=== PATIENT | female | born 1955 | race Caucasian/White ===

== ENCOUNTER 2017-02-23 13:38 | Inpatient (IN) | payer BC, OTHER ==
[2017-02-23] MEDS ORDERED: SODIUM CHLORIDE 1,000 ML IV STA (14:09)
[2017-02-23] MEDS ORDERED: ONDANSETRON 4 MG/2 ML VIAL IVPUSH ONE (14:09)
[2017-02-23] MEDS ORDERED: morphine CARPU-JECT 4 MG/1 ML DISP.SYRIN IVPUSH ONE ×2 (14:09→15:33)
[2017-02-23] MEDS ORDERED: FAMOTIDINE 20 MG/50 ML IVPB 50 ML IVPB ONE ×2 (14:10→14:20)
--- NOTE | 2017-02-23 14:17 | PDOC ---
History of Present Illness - History of Present Illness Initial Comments: 02/23/17 14:23 The patient is a 61 year old female, with a significant past medical history of diabetes and hypertension, who presents to the emergency department with constant epigastric pain radiating to back since 11AM today. The patient reports her pain as a burning, pressure-like pain, 9/10 in severity, localized to her epigastric region, radiating slightly upward to her sternum, and to her back. She denies any alleviating or exacerbating factors for pain. She states she has been burping frequently, but denies passing gas from below today. She reports her last BM was normal this morning. She denies chest pain, shortness of breath, headache and dizziness. She denies fever, chills, nausea, vomit, diarrhea and constipation. She denies dysuria, frequency, urgency and hematuria. Allergies: NKDA Past surgical history: gastric bypass <Corinne Vera - Last Filed: 02/23/17 16:19> - General History Source: Patient, Old Records Exam Limitations: No Limitations <Dulce Maria Choudhury - Last Filed: 02/23/17 16:23> - General Chief Complaint: Chest Pain Stated Complaint: PAIN/ CHEST, BACK, ABD Time Seen by Provider: 02/23/17 13:52 Past History <Corinne Vera - Last Filed: 02/23/17 16:19> - Past Medical History Diabetes: Yes HTN: Yes - Immunization History Immunization Up to Date: Yes - Psycho/Social/Smoking Cessation Hx Anxiety: No Suicidal Ideation: No Smoking Status: No Smoking History: Never smoked Hx Alcohol Use: No Drug/Substance Use Hx: No Substance Use Type: None Hx Substance Use Treatment: No <Dulce Maria Choudhury - Last Filed: 02/23/17 16:23> - Past Medical History Allergies/Adverse Reactions: Allergies Allergy/AdvReac Type Severity Reaction Status Date / Time No Known Allergies Allergy Verified 07/07/13 02:21 Home Medications: Ambulatory Orders Lisinopril [Prinivil -] 40 mg PO DAILY #0 tablet 07/08/13 Metformin HCl [Glucophage -] 500 mg PO DAILY #0 tablet 07/08/13 Review of Systems - Review of Systems Able to Perform ROS?: Yes Comments:: 02/23/17 14:23 GENERAL/CONSTITUTIONAL: No fever or chills. No weakness. HEAD, EYES, EARS, NOSE AND THROAT: No change in vision. No ear pain or discharge. No sore throat. CARDIOVASCULAR: No chest pain or shortness of breath. RESPIRATORY: No cough, wheezing, or hemoptysis. GASTROINTESTINAL: (+) epigastric pain with burping. No nausea, vomiting, diarrhea or constipation. GENITOURINARY: No dysuria, frequency, or change in urination. MUSCULOSKELETAL: No joint or muscle swelling or pain. No neck or back pain. SKIN: No rash NEUROLOGIC: No headache, vertigo, loss of consciousness, or change in strength/ sensation. ENDOCRINE: No increased thirst. No abnormal weight change. HEMATOLOGIC/LYMPHATIC: No anemia, easy bleeding, or history of blood clots. ALLERGIC/IMMUNOLOGIC: No hives or skin allergy. <Corinne Vera - Last Filed: 02/23/17 16:19> *Physical Exam - Vital Signs Last Vital Signs Temp Pulse Resp BP Pulse Ox 97.3 F L 62 18 136/75 100 02/23/17 13:38 02/23/17 13:38 02/23/17 13:38 02/23/17 13:38 02/23/17 13:38 - Physical Exam Comments: 02/23/17 14:24 GENERAL: + Awake, alert, and fully oriented, uncomfortable appearing. in no acute distress HEAD: No signs of trauma EYES: PERRLA, EOMI, sclera anicteric, conjunctiva clear ENT: Auricles normal inspection, hearing grossly normal, nares patent, oropharynx clear without exudates. Moist mucosa NECK: Normal ROM, supple, no lymphadenopathy, JVD, or masses LUNGS: Breath sounds equal, clear to auscultation bilaterally. No wheezes, and no crackles HEART: Regular rate and rhythm, normal S1 and S2, no murmurs, rubs or gallops ABDOMEN: (+) epigastric and RUQ ttp. ?questionable wes's sign. Soft, normoactive bowel sounds. No guarding, no rebound. No masses EXTREMITIES: Normal range of motion, no edema. No clubbing or cyanosis. No cords, erythema, or tenderness NEUROLOGICAL: Cranial nerves II through XII grossly intact. Normal speech, normal gait SKIN: Warm, Dry, normal turgor, no rashes or lesions noted. <Corinne Vera - Last Filed: 02/23/17 16:19> - Vital Signs Last Vital Signs Temp Pulse Resp BP Pulse Ox 97.3 F L 62 18 136/75 100 02/23/17 13:38 02/23/17 13:38 02/23/17 13:38 02/23/17 13:38 02/23/17 13:38 <Dulce Maria Choudhury - Last Filed: 02/23/17 16:23> Heart Score/ECG Review - ECG Intrepretation Comment:: 02/23/17 16:06 ECG was read by Dr. Choudhury at 13:43 Impression: Normal sinus rhythm <Corinne Vera - Last Filed: 02/23/17 16:19> ED Treatment Course - LABORATORY CBC & Chemistry Diagram: 02/23/17 14:10 02/23/17 14:10 - RADIOLOGY Radiograph Interpretation: 02/23/17 15:45 CXR was read by Dr. Gonzalez at 14:10 Impression: prominent heart. fullness left hilium. degenerative changes. clear lung espinoza. 02/23/17 15:51 abdomen US was read by Dr. Fagan at 15:25 Impression: Cholelithiasis <Corinne Vera - Last Filed: 02/23/17 16:19> - LABORATORY CBC & Chemistry Diagram: 02/23/17 14:10 02/23/17 14:10 - RADIOLOGY Radiology Studies Ordered: Category Date Time Status CHEST X-RAY PORTABLE* [RAD] Stat Radiology 02/23/17 13:53 Taken ABDOMEN US -LIMITED [US] Stat Ultrasound 02/23/17 14:09 Ordered <Dulce Maria Choudhury - Last Filed: 02/23/17 16:23> Medical Decision Making - Medical Decision Making 02/23/17 15:42 Dr. Alfonzo Aparicio was paged via phone answering service at this time requesting call back for doctor to doctor consult. <Corinne Vera - Last Filed: 02/23/17 16:19> - Medical Decision Making 02/23/17 14:16 61-year-old female with history of hypertension and diabetes presents the emergency department with epigastric and right upper quadrant pain since 11 AM this morning with nausea and burping. Differential diagnosis includes but is not limited to: Gallbladder disease, pancreatitis, GERD, peptic ulcer disease, atypical presentation of ACS, electrolyte abnormality, dehydration, toxic/ metabolic derangement. Plan: 1. EKGshows sinus bradycardia at 60 bpm with no acute ST segment changes and Q waves in V1 and V2 2. Labs 3. IV fluids for hydration 4. Pain management 5. Antiemetics 6. Abdominal ultrasound 7. Observe and reevaluate 02/23/17 15:35 Addendum: Labs are reviewed and are noted in the EMR. The white blood cell count is elevated as are the liver function tests. Abdominal ultrasound shows a large gallstone within the gallbladder and a thickened gallbladder wall but no evidence of obstruction stone. Will murphy culture and cover with Zosyn. We'll consult general surgery and will admit to the hospital. <Dulce Maria Choudhury - Last Filed: 02/23/17 16:23> *DC/Admit/Observation/Transfer - Attestations Scribe Attestion: 02/23/17 14:25 Documentation prepared by Corinne Vera, acting as medical interpreter for Dulce Maria Choudhury MD <Corinne Vera - Last Filed: 02/23/17 16:19> - Discharge Dispostion Admit: Yes - Attestations Physician Attestion: 02/23/17 14:17 I, Dr. Dulce Maria Choudhury, attest that the scribes documentation that appears above has been prepared under my direction and personally reviewed by me in its entirety. I confirmed that the note above accurately reflects all work, treatment, procedures, and medical decision-making performed by me. <Dulce Maria Choudhury - Last Filed: 02/23/17 16:23> Diagnosis at time of Disposition: Epigastric pain, Cholelithiasis, Biliary colic - Discharge Dispostion Condition at time of disposition: Stable - Referrals Referrals: Conor Miller [Primary Care Provider] -
[2017-02-23] MEDS ORDERED: morphine CARPU-JECT 4 MG/1 ML DISP.SYRIN ONE ×2 (14:20→15:56)
[2017-02-23] MEDS ORDERED: ONDANSETRON 4 MG/2 ML VIAL ONE (14:20)
[2017-02-23 14:21] LABS: BASOPHIL 0.2 % (0-2.0); EOSINOPHIL 0.1 % (0-4.5); MCH 27.9 pg (25.7-33.7); MCHC 32.8 g/dl (32.0-36.0); MEAN CELL VOLUME 85.1 fl (80-96); MEAN PLT VOLUME 8.8 fl (7.5-11.1); PLATELET COUNT 260 K/MM3 (134-434); RDW 13.3 % (11.6-15.6); WHITE BLOOD COUNT 14.9 K/mm3 (4.0-10.0)
[2017-02-23 14:50] LABS: ANION GAP 12 (8-16); BILIRUBIN,TOTAL 1.4 mg/dL (0.2-1.0); CALCIUM 9.4 mg/dL (8.5-10.1); CO2 25 mmol/L (21-32); CREATININE 0.9 mg/dL (0.55-1.02); GLUCOSE,RANDOM 150 mg/dL (74-106); SGOT/AST 367 U/L (15-37); SGPT/ALT 139 U/L (12-78); TOT PROT 7.5 g/dl (6.4-8.2)
[2017-02-23 14:53] LABS: ALK PHOS 229 U/L (45-117); TROPONIN I < 0.02 ng/ml (0.00-0.05)
--- NOTE | 2017-02-23 14:54 | EKG ---
Test Reason : Blood Pressure : / mmHG Vent. Rate : 060 BPM Atrial Rate : 060 BPM P-R Int : 160 ms QRS Dur : 078 ms QT Int : 444 ms P-R-T Axes : 002 000 034 degrees QTc Int : 444 ms NORMAL SINUS RHYTHM SEPTAL INFARCT , AGE UNDETERMINED ABNORMAL ECG WHEN COMPARED WITH ECG OF 07-JUL-2013 02:28, NO SIGNIFICANT CHANGE WAS FOUND Confirmed by YONATAN SHERWOOD MD ([id number]) on 02/23/2017 2:54:24 PM Referred By: Confirmed By:YONATAN SHERWOOD MD
[2017-02-23] MEDS ORDERED: PIPERACILLIN/TAZOB 3.375 GM/50 ML PRE-DOCKED IV ONE (15:34)
[2017-02-23] MEDS ORDERED: PIPERACILLIN/TAZOB 3.375 GM 50 ML IVPB ONE (15:57)
--- NOTE | 2017-02-23 16:52 | HP ---
CHIEF COMPLAINT: vomiting and abdominal pain PCP:Dr. sarah Strong HISTORY OF PRESENT ILLNESS: 61 yr old woman with NIDDM II and HTN presents with 1 day of nausea, 4 episodes of nonbloody nonbilous vomiting and abdominal pain. It started around 11am this morning, shortly after eating a plum and 2 hours after eating plaintains and cheese for breakfast earlier. The pain is "internally squeezing" in nature, radiates to the back, continous since it started, 05/05, with no alleviating or exacerbating features, denies previous episodes. denies fever, chest pain, syncope, new foods. ER course was notable for: (1) IVF (2) lactic acid (3) call to Dr. gray Recent Travel: 3-day trip to [facility] early january, no new foods PAST MEDICAL HISTORY: controlled HTN and NIDDM II PAST SURGICAL HISTORY: 22 yrs ago, gastric bypass at [facility] in 2012 Social History: Smoking: denies Alcohol:denies Drugs: denies Family History: sister with DM and HTN, brother with "stomach cancer" dx'ed at age 57, father with "heart problem" from pulmonary edema Allergies No Known Allergies Allergy (Verified 07/07/13 02:21) HOME MEDICATIONS: Home Medications Medication Instructions Recorded Lisinopril [Prinivil -] 40 mg PO DAILY #0 tablet 07/08/13 Metformin HCl [Glucophage -] 500 mg PO DAILY #0 tablet 07/08/13 REVIEW OF SYSTEMS CONSTITUTIONAL: Present: chills Absent: fever, diaphoresis, generalized weakness, malaise, loss of appetite, weight change HEENT: Absent: rhinorrhea, nasal congestion, throat pain, throat swelling, difficulty swallowing, mouth swelling, ear pain, eye pain, visual changes CARDIOVASCULAR: Absent: chest pain, syncope, palpitations, irregular heart rate, lightheadedness , peripheral edema RESPIRATORY: Absent: cough, shortness of breath, GASTROINTESTINAL: Present:nausea, vomiting,abdominal pain, Absent: abdominal distension, diarrhea, constipation, melena, hematochezia GENITOURINARY: Absent: dysuria, frequency, urgency, hesitancy, hematuria, flank pain, genital pain MUSCULOSKELETAL: Absent: myalgia, arthralgia, joint swelling, back pain, neck pain SKIN: Absent: rash, itching, pallor PHYSICAL EXAMINATION Vital Signs - 24 hr 02/23/17 13:38 Temperature 97.3 F L Pulse Rate 62 Respiratory 18 Rate Blood Pressure 136/75 O2 Sat by Pulse 100 Oximetry (%) GENERAL: Awake, alert, and fully oriented, in no acute distress. HEAD: Normal with no signs of trauma. EYES: Pupils equal, round and reactive to light, extraocular movements intact, sclera anicteric, conjunctiva clear. No lid lag. EARS, NOSE, THROAT: Ears normal, nares patent, oropharynx clear without exudates. Moist mucous membranes. NECK: Normal range of motion, supple without lymphadenopathy, JVD, or masses. LUNGS: Breath sounds equal, clear to auscultation bilaterally. No wheezes, and no crackles. No accessory muscle use. HEART: Regular rate and rhythm, normal S1 and S2 with systolic murmur in r2nd intercostal space, rub or gallop. ABDOMEN: Soft, foster's +, ttp in epigastrium/RUQ, not distended, normoactive bowel sounds, no guarding, no rebound, no masses. psoas and obturator's neg. MUSCULOSKELETAL: Normal range of motion at all joints. No bony deformities or tenderness. No CVA tenderness. UPPER EXTREMITIES: 2+ radial pulses, warm, well-perfused. No cyanosis. No clubbing. No peripheral edema. LOWER EXTREMITIES: 2+ dp/tp pulses, warm, well-perfused. No calf tenderness. No peripheral edema. NEUROLOGICAL: Cranial nerves II-XII intact. Normal speech. Normal gait. PSYCHIATRIC: Cooperative. Good eye contact. Appropriate mood and affect. Laboratory Results - last 24 hr 02/23/17 02/23/17 02/23/17 14:10 14:10 14:10 WBC 14.9 H D RBC 4.75 Hgb 13.3 Hct 40.4 MCV 85.1 MCHC 32.8 RDW 13.3 Plt Count 260 MPV 8.8 Neutrophils % 88.0 H Lymphocytes % 7.6 L D Monocytes % 4.1 Eosinophils % 0.1 Basophils % 0.2 Sodium 140 Potassium 4.0 Chloride 103 Carbon Dioxide 25 Anion Gap 12 BUN 18 Creatinine 0.9 D Creat Clearance w eGFR > 60 Random Glucose 150 H Lactic Acid Calcium 9.4 Total Bilirubin 1.4 H D AST 367 H D ALT 139 H D Alkaline Phosphatase 229 H D Creatine Kinase 77 Troponin I < 0.02 Total Protein 7.5 D Albumin 4.0 D Lipase 143 Cancelled 02/23/17 15:39 WBC RBC Hgb Hct MCV MCHC RDW Plt Count MPV Neutrophils % Lymphocytes % Monocytes % Eosinophils % Basophils % Sodium Potassium Chloride Carbon Dioxide Anion Gap BUN Creatinine Creat Clearance w eGFR Random Glucose Lactic Acid 3.6 H* Calcium Total Bilirubin AST ALT Alkaline Phosphatase Creatine Kinase Troponin I Total Protein Albumin Lipase Active Medications Piperacillin Sod/Tazobactam Sod (Zosyn 3.375gm Ivpb (Pre-Docked)) 50 mls @ 100 mls/hr IVPB Q8H-IV MELISSA PRN Reason: Protocol Sodium Chloride (Normal Saline -) 1,000 mls @ 100 mls/hr IV ASDIR MELISSA Insulin Aspart (Novolog Vial) 1 units SQ ACHS MELISSA PRN Reason: Protocol Ondansetron HCl (Zofran Injection) 4 mg IVPB Q6H PRN PRN Reason: NAUSEA ASSESSMENT/PLAN: 61 yr old woman with NIDDM II and HTN presents with abdominal pain and vomiting admitted for severe sepsis likely due to cholecystitis. #Severe sepsis likely due to cholecystitis - clinically pt has s/s of cholecystitis despite not being noted on u/s - NPO, IVF with NS @100cc/hr - zosyn IVPB 3.375 q8hr to cover bowel bacteria - zofran 4mg q6hr prn - HIDA and MRCP to r.o stones - trend lactic acid and lft's - pending surgical consult with Dr. gray tomorrow #DM hold metformin and glyxma 10mg NISS, BGm ACHS #HTN norvasc 5mg po telmasartan 80mg po daily DVT: heparin bid Visit type - Emergency Visit Emergency Visit: Yes ED Registration Date: 02/23/17 Care time: The patient presented to the Emergency Department on the above date and was hospitalized for further evaluation of their emergent condition. - New Patient This patient is new to me today: Yes Date on this admission: 02/23/17 - Critical Care Critical Care patient: No
[2017-02-23 17:01] LABS: URINE APPEARANCE CLEAR; URINE BILIRUBIN NEGATIVE (NEGATIVE); URINE BLOOD NEGATIVE (NEGATIVE); URINE COLOR STRAW; URINE GLUCOSE (UA) 3+ (NEGATIVE); URINE KETONE 1+ (NEGATIVE); URINE LEUK ESTERASE NEGATIVE (NEGATIVE); URINE NITRITE NEGATIVE (NEGATIVE); URINE PROTEIN NEGATIVE (NEGATIVE); URINE UROBILINOGEN NEGATIVE E.U./dl (0.2-1.0)
--- NOTE | 2017-02-23 18:38 | CONSULT ---
Consult Consult Specialty:: infectious diseases Reason for Consultation:: abd pain,cholecystitis - History of Present Illness Chief Complaint: abd pain ruq History of Present Illness: 61 yr old woman with DM and HTN came because of f nausea, vomiting and abdominal pain. patient says she is relatively healthy and in the morning the pain came on suddenly and it was pretty bad which forced her to tell her pain is in ruq and radiating to the shoulder,does not go to the back currently she feels well and pain is better after the pain medications - History Source History Provided By: Patient, Family Member Limitations to Obtaining History: No Limitations - Past Medical History Cardio/Vascular: Yes: HTN Endocrine: Yes: Diabetes Mellitus - Past Surgical History Past Surgical History: Yes: None - Alcohol/Substance Use Hx Alcohol Use: No - Smoking History Smoking history: Never smoked Home Medications - Allergies Allergies/Adverse Reactions: Allergies Allergy/AdvReac Type Severity Reaction Status Date / Time No Known Allergies Allergy Verified 07/07/13 02:21 - Home Medications Home Medications: Ambulatory Orders Metformin HCl [Glucophage -] 500 mg PO DAILY #0 tablet 07/08/13 Amlodipine Besylate [Norvasc -] 5 mg PO DAILY 02/23/17 Empagliflozin/Linagliptin [Glyxambi 10 mg-5 mg Tablet] 1 each PO DAILY 02/23/17 Telmisartan 80 mg PO DAILY 02/23/17 Review of Systems - Review of Systems Constitutional: reports: Other Eyes: reports: No Symptoms HENT: reports: No Symptoms Neck: reports: No Symptoms Cardiovascular: reports: No Symptoms Respiratory: reports: No Symptoms Gastrointestinal: reports: Abdominal Pain (ruq), Nausea, Vomiting Genitourinary: reports: No Symptoms Musculoskeletal: reports: No Symptoms Integumentary: reports: No Symptoms Neurological: reports: No Symptoms Endocrine: reports: No Symptoms Hematology/Lymphatic: reports: No Symptoms Psychiatric: reports: No Symptoms Physical Exam Vital Signs: Vital Signs Temperature 98.1 F 02/23/17 17:18 Pulse Rate 90 02/23/17 17:18 Respiratory Rate 18 02/23/17 17:18 Blood Pressure 121/82 02/23/17 17:18 O2 Sat by Pulse Oximetry (%) 98 02/23/17 17:18 Constitutional: Yes: Well Nourished, No Distress, Calm Eyes: Yes: Conjunctiva Clear HENT: Yes: Atraumatic, Normocephalic Cardiovascular: Yes: Regular Rate and Rhythm, Murmur (patient knows of it since a long time) Respiratory: Yes: Regular, CTA Bilaterally Gastrointestinal: Yes: Soft, Other Musculoskeletal: Yes: WNL Extremities: Yes: WNL Integumentary: Yes: WNL Neurological: Yes: Alert, Oriented Psychiatric: Yes: Alert, Oriented Imaging - Results Chest X-ray: Report Reviewed, Image Reviewed Ultrasound: Report Reviewed, Image Reviewed Assessment/Plan 61 yr old woman with NIDDM II and HTN presents with abdominal pain and vomiting with a diagnosis of cholecystitis. sepsis cholecystitis DM HTN plan will start patient on abx will await for all cx to come back will need surgery rest as per primary hydration
[2017-02-23 18:45] VITALS: BMI 29.9
[2017-02-23] MEDS ORDERED: ONDANSETRON 4 MG/2 ML VIAL IVPB PRN (19:05)
--- NOTE | 2017-02-23 19:10 | PN ---
Teaching Attending Note Name of Resident: Gopi Odonnell ATTENDING PHYSICIAN STATEMENT I saw and evaluated the patient. I reviewed the resident's note and discussed the case with the resident. I agree with the resident's findings and plan as documented. SUBJECTIVE: has abd pain since 10 am this am , ate cheese and plantain for breakfast at 8 am. abd pain radiates to back, stady and increased, had N/V , no blood . has no diarrhea or dysuria . denied fever or chills. denies alcohol, rapid weight loss or drug use . she was given IVF in ER , and zosyn . US with gall stones. OBJECTIVE: NAD , AAOx3, MMM, no LAP CV: RRR, 2/6 SM at RUSB, no radiation to carotids Lungs: CTAB Ext: no edema or erythema Abd: soft, ND, TTP in RUQ and less in RLQ , has + Foster's , nl BS , no rebound tenderness or guarding . ASSESSMENT AND PLAN: 61 y/o lady with h/o HTN , DM , who presented with Abd pain. She was found to have severe sepsis , and gall stones. 1- Severe sepsis : likely due to acute cholecystitis ( Severe sepsis , + foster 's , transamintiis ) , despite no sonographic evidence of cholecystitis . Of course cholangitis in DDx but less likely. - NPO - IVF - Abx : zosyn + ID consult - check HIDA scan - Check MRCP, if there is CBD dilation or stones then will need ERCP . - follow LFTS , lactic , and CBC - Dr. Aparicio was called by ER MD 2- DM : hold oral meds SSI 3- HTN: resume her norvasc and telmesartan/or equivalent 4- DVT Px
[2017-02-24] MEDS: INSULIN (NOVOLOG) ASPART 100 UNITS/ML 10ML VIAL SQ SCH ×5 (00:08→23:01)
[2017-02-24] MEDS: PIPERACILLIN/TAZOB 3.375 GM 50 ML IVPB SCH ×3 (01:37→17:43)
[2017-02-24 08:34] LABS: BASOPHIL 0.2 % (0-2.0); EOSINOPHIL 0.1 % (0-4.5); MCH 28.4 pg (25.7-33.7); MCHC 33.4 g/dl (32.0-36.0); MEAN CELL VOLUME 85.2 fl (80-96); MEAN PLT VOLUME 8.9 fl (7.5-11.1); NEUTROPHILS 89.7 % (42.8-82.8); PLATELET COUNT 244 K/MM3 (134-434); RDW 13.4 % (11.6-15.6); WHITE BLOOD COUNT 15.5 K/mm3 (4.0-10.0)
[2017-02-24] MEDS: SODIUM CHLORIDE 1,000 ML IV SCH ×2 (08:42→21:58)
[2017-02-24 08:59] LABS: ALBUMIN 3.1 g/dl (3.4-5.0); ANION GAP 12 (8-16); CALCIUM 8.4 mg/dL (8.5-10.1); CO2 21 mmol/L (21-32); CREATININE 0.8 mg/dL (0.55-1.02); GLUCOSE,RANDOM 81 mg/dL (74-106); SGPT/ALT 259 U/L (12-78)
[2017-02-24 09:01] LABS: ALK PHOS 331 U/L (45-117); BILIRUBIN,TOTAL 3.4 mg/dL (0.2-1.0)
[2017-02-24 09:03] LABS: SGOT/AST 420 U/L (15-37)
[2017-02-24] MEDS: HEPARIN NA (PORCINE) 5,000 UNITS/ML 1ML VIAL SQ SCH ×2 (09:16→21:58)
--- NOTE | 2017-02-24 12:42 | PN ---
Progress Note (short form) - Note Progress Note: Subjective: no apian in AB d, feels better, no N/V Objective: Vital Signs: Last Vital Signs Temp Pulse Resp BP Pulse Ox 98.8 F 89 18 116/75 98 02/24/17 10:00 02/24/17 10:00 02/24/17 10:00 02/24/17 10:00 02/24/17 09:00 Laboratory Results - last 24 hr 02/23/17 02/23/17 02/23/17 14:10 14:10 14:10 WBC 14.9 H D RBC 4.75 Hgb 13.3 Hct 40.4 MCV 85.1 MCHC 32.8 RDW 13.3 Plt Count 260 MPV 8.8 Neutrophils % 88.0 H Lymphocytes % 7.6 L D Monocytes % 4.1 Eosinophils % 0.1 Basophils % 0.2 Sodium 140 Potassium 4.0 Chloride 103 Carbon Dioxide 25 Anion Gap 12 BUN 18 Creatinine 0.9 D Creat Clearance w eGFR > 60 POC Glucometer Random Glucose 150 H Lactic Acid Calcium 9.4 Total Bilirubin 1.4 H D Direct Bilirubin AST 367 H D ALT 139 H D Alkaline Phosphatase 229 H D Creatine Kinase 77 Troponin I < 0.02 Total Protein 7.5 D Albumin 4.0 D Lipase 143 Cancelled Urine Color Urine Appearance Urine pH Ur Specific Butler Urine Protein Urine Glucose (UA) Urine Ketones Urine Blood Urine Nitrite Urine Bilirubin Urine Urobilinogen Ur Leukocyte Esterase 02/23/17 02/23/17 02/23/17 15:39 16:39 17:30 WBC RBC Hgb Hct MCV MCHC RDW Plt Count MPV Neutrophils % Lymphocytes % Monocytes % Eosinophils % Basophils % Sodium Potassium Chloride Carbon Dioxide Anion Gap BUN Creatinine Creat Clearance w eGFR POC Glucometer Random Glucose Lactic Acid 3.6 H* 3.0 H* Calcium Total Bilirubin Direct Bilirubin AST ALT Alkaline Phosphatase Creatine Kinase Troponin I Total Protein Albumin Lipase Urine Color Straw Urine Appearance Clear Urine pH 7.0 Ur Specific Butler 1.010 Urine Protein Negative Urine Glucose (UA) 3+ H Urine Ketones 1+ H Urine Blood Negative Urine Nitrite Negative Urine Bilirubin Negative Urine Urobilinogen Negative Ur Leukocyte Esterase Negative 02/23/17 02/24/17 02/24/17 23:35 06:26 06:30 WBC RBC Hgb Hct MCV MCHC RDW Plt Count MPV Neutrophils % Lymphocytes % Monocytes % Eosinophils % Basophils % Sodium 140 Potassium 4.0 Chloride 107 Carbon Dioxide 21 Anion Gap 12 BUN 15 Creatinine 0.8 Creat Clearance w eGFR POC Glucometer 132 90 Random Glucose 81 D Lactic Acid Calcium 8.4 L Total Bilirubin 3.4 H D Direct Bilirubin 3.0 H AST 420 H ALT 259 H D Alkaline Phosphatase 331 H D Creatine Kinase Troponin I Total Protein 6.0 L Albumin 3.1 L D Lipase Urine Color Urine Appearance Urine pH Ur Specific Butler Urine Protein Urine Glucose (UA) Urine Ketones Urine Blood Urine Nitrite Urine Bilirubin Urine Urobilinogen Ur Leukocyte Esterase 02/24/17 02/24/17 07:50 12:06 WBC 15.5 H RBC 4.39 Hgb 12.5 Hct 37.4 MCV 85.2 MCHC 33.4 RDW 13.4 Plt Count 244 MPV 8.9 Neutrophils % 89.7 H Lymphocytes % 5.3 L D Monocytes % 4.7 Eosinophils % 0.1 Basophils % 0.2 Sodium Potassium Chloride Carbon Dioxide Anion Gap BUN Creatinine Creat Clearance w eGFR POC Glucometer 84 Random Glucose Lactic Acid Calcium Total Bilirubin Direct Bilirubin AST ALT Alkaline Phosphatase Creatine Kinase Troponin I Total Protein Albumin Lipase Urine Color Urine Appearance Urine pH Ur Specific Butler Urine Protein Urine Glucose (UA) Urine Ketones Urine Blood Urine Nitrite Urine Bilirubin Urine Urobilinogen Ur Leukocyte Esterase Microbiology 02/23/17 15:55 Blood Culture - Preliminary Blood - Peripheral Venous Lactose Fermenting Neg Bacilli 02/23/17 15:55 Blood Culture - Preliminary Blood - Peripheral Venous Lactose Fermenting Neg Bacilli Physical Exam: NAD , AAOx3, MMM, no LAP CV: RRR, 2/6 SM at RUSB, no radiation to carotids Lungs: CTAB Ext: no edema or erythema Abd: soft, ND, minimal TTP in RUQ aNeg Rojas's today. has no rebound tenderness or guarding ASSESSMENT AND PLAN: 61 y/o lady with h/o HTN , DM , who presented with Abd pain. She was found to have severe sepsis , and gall stones. 1- Severe sepsis : likely due to ascending cholangitis , . Now has bacteremia with G- bacteria LFTS kenna , which indicate persistent obstruction in CBD - NPO - cont IVF - cont Abx - check MRCP , to evaluate for CBD stone. - consult GI for evaluation of ERCP as LFTS are rising , and pt is bacteremic - Sx eval pending - hold off HIDA scan now - repeat lactic acid 2- DM : hold oral meds SSI 3- HTN: resume her norvasc . hold off on ARB as septic HLOC Visit type - Emergency Visit Emergency Visit: Yes ED Registration Date: 02/23/17 Care time: The patient presented to the Emergency Department on the above date and was hospitalized for further evaluation of their emergent condition. - New Patient This patient is new to me today: No - Critical Care Critical Care patient: No
--- NOTE | 2017-02-24 13:25 | CON.GI ---
Consult Consult Specialty:: GI: For Dr. Dai Referred by:: Hospitalist Service Reason for Consultation:: Ascending Cholangitis - History of Present Illness Chief Complaint: I had abdominal pain History of Present Illness: 61F [address] [facility] ER for evaluation of abdominal pain. She states that she was in her usual state of health up until yesterday afternoon. She ate breakfast and then about 3-4 hours later began experiencing epigastric / RUQ pain radiating to the right side of her back. This was accompanied by nausea along with vomiting. She denies similar episodes in the past. In the ER she was noted to have triage vitals 97.3/62/136/73 however was noted to have a temp 100 afterwards. Abdominal US performed multiple gallstones, one of which was 2.6cm. There was no biliary ductal dilatation noted. She also was noted to have gram negative bacteremia. She gives a history of gastric bypass in 2012 as well (by description ? ronel-en-y as she describes her "small intestine being moved"). She recently had an uneventful trip to [facility]. There is no personal / family history of liver disease, denies acetaminophen use and there has been no recent adjustment to her outpatient medications. - History Source History Provided By: Patient, Medical Record Limitations to Obtaining History: No Limitations - Past Medical History Cardio/Vascular: Yes: HTN Endocrine: Yes: Diabetes Mellitus - Past Surgical History Past Surgical History: Yes: Additional Surgical History: Gastric Bypass 2012 - Alcohol/Substance Use Hx Alcohol Use: No History of Substance Use: reports: None - Smoking History Smoking history: Never smoked - Social History Usual Living Arrangement: With Spouse ADL: Independent Occupation: teaching assiatant Place of : Other ([facility]) Came to [place] (year[place] Age 44 History of Recent Travel: Yes (uneventful trip to [place]) Home Medications - Allergies Allergies/Adverse Reactions: Allergies Allergy/AdvReac Type Severity Reaction Status Date / Time No Known Allergies Allergy Verified 07/07/13 02:21 - Home Medications Home Medications: Ambulatory Orders Metformin HCl [Glucophage -] 500 mg PO DAILY #0 tablet 07/08/13 Amlodipine Besylate [Norvasc -] 5 mg PO DAILY 02/23/17 Empagliflozin/Linagliptin [Glyxambi 10 mg-5 mg Tablet] 1 each PO DAILY 02/23/17 Telmisartan 80 mg PO DAILY 02/23/17 Family Disease History - Family Disease History Family Disease History: Other: Father (:52: hrt problems), Mother (: 79 : hrt problems), Brother (3, 1 with stomach cancer), Sister (3, one with HTN / DM) Other Family History: 3 healthy children Review of Systems - Review of Systems Constitutional: denies: Chills, Fever, Night Sweats Cardiovascular: denies: Chest Pain Respiratory: denies: SOB Gastrointestinal: reports: Abdominal Pain, Nausea, Vomiting Physical Exam-GI Vital Signs: Vital Signs Temperature 98.8 F 02/24/17 10:00 Pulse Rate 89 02/24/17 10:00 Respiratory Rate 18 02/24/17 10:00 Blood Pressure 116/75 02/24/17 10:00 O2 Sat by Pulse Oximetry (%) 98 02/24/17 09:00 Constitutional: Yes: Calm Eyes: No: Sclera Icterus Cardiovascular: Yes: Regular Rate and Rhythm. No: Murmur Respiratory: Yes: CTA Bilaterally Gastrointestinal Inspection: Yes: Scars (healed trochar scars) ...Auscultate: Yes: Normoactive Bowel Sounds ...Palpate: Yes: Tenderness (RUQ>epigastric, + foster's). No: Guarding, Tenderness, Rebound ...Percussion: No: Tympanitic Edema: No Neurological: Yes: Alert, Oriented Labs: CBC, BMP 02/24/17 07:50 02/24/17 06:30 Laboratory Tests 02/23/17 02/24/17 14:10 06:30 Total Bilirubin 1.4 H D 3.4 H D Direct Bilirubin 3.0 H AST 367 H D 420 H ALT 139 H D 259 H D Alkaline Phosphatase 229 H D 331 H D Imaging - Results Ultrasound: Report Reviewed Problem List - Problems (1) Biliary colic Assessment/Plan: Given acuity of the onset of symptoms after a meal along with abnormal liver chemistries, differential would need to include cholecystitis and agree that given rise in alkaline phosphatase and total bilirubin along with bacteremia, concern for cholangitis is necessary as well. Gastric bypass anatomy does complicate ERCP and often this leads to a surgically assisted ERCP in facilities equipped to have this performed. I spoke with Dr. Reji Carrillo @ [facility], advanced biliary endoscopist. He agreed with MRCP for further imaging / evaluation of the Gallbladder and biliary tract. If evidence of obstructed biliary system then PTC would be first step for decompressive purposes followed by definitive therapy at a later date. I spoke with Dr. Gerardo Mclaughlin, hepatobiliary surgeon @ [facility] who agreed with the above plan as well and would aid in having her transferred to [facility] if necessary. Left message to discuss with Dr. Owen as well, biliary endoscopist here @ [facility] For now: NPO Await MRCP results. 8W nursing called radiology to have the reading expedited IV hydration IV Abx per ID Surgical evaluation as cholecystectomy still may be needed. If surgery cannot be performed expeditiously and it seems that it is the cause of her current clinical picture, then needs percutaneous cholecystostomy. Code(s): K80.50 - CALCULUS OF BILE DUCT W/O CHOLANGITIS OR CHOLECYST W/O OBST
--- NOTE | 2017-02-24 14:38 | PN ---
Progress Note (short form) - Note Progress Note: Reviewed MRI/MRCP with Dr. Sheridan: No obvious dilated CBD or intraductal stone and no intrahepatic ductal dilatation however MRCP not optimal. Appeared to be 2mm in diameter. There did, however, appear to be changes c/w advanced calculous cholecystitis with pericholecystic fluid. I spoke with Dr. Aparicio and explained the clinical situation to him including the bacteremia. He said he would be seeing her today. I also ordered MRCP for repeat images of her biliary tract and repeat LFT's. Problem List - Problems (1) Biliary colic Code(s): K80.50 - CALCULUS OF BILE DUCT W/O CHOLANGITIS OR CHOLECYST W/O OBST
--- NOTE | 2017-02-24 15:41 | PN ---
Progress Note, Physician History of Present Illness: patient had mild grade low temp otherwise she is doing well no c/o of pain - Current Medication List Current Medications: Active Medications Amlodipine Besylate (Norvasc -) 5 mg PO DAILY [facility] Heparin Sodium (Porcine) (Heparin -) 5,000 unit SQ BID [facility] Last Admin: 02/24/17 09:16 Dose: 5,000 unit Piperacillin Sod/Tazobactam Sod (Zosyn 3.375gm Ivpb (Pre-Docked)) 50 mls @ 100 mls/hr IVPB Q8H-IV MELISSA PRN Reason: Protocol Last Admin: 02/24/17 09:16 Dose: 100 mls/hr Sodium Chloride (Normal Saline -) 1,000 mls @ 100 mls/hr IV ASDIR [facility] Last Admin: 02/24/17 08:42 Dose: 100 mls/hr Insulin Aspart (Novolog Vial) 1 units SQ ACHS MELISSA PRN Reason: Protocol Last Admin: 02/24/17 12:17 Dose: Not Given Ondansetron HCl (Zofran Injection) 4 mg IVPB Q6H PRN PRN Reason: NAUSEA - Objective Vital Signs: Vital Signs Temperature 97.7 F 02/24/17 14:59 Pulse Rate 90 02/24/17 14:59 Respiratory Rate 18 02/24/17 14:59 Blood Pressure 154/87 02/24/17 14:59 O2 Sat by Pulse Oximetry (%) 98 02/24/17 09:00 Constitutional: Yes: No Distress, Calm Cardiovascular: Yes: Regular Rate and Rhythm, Murmur Respiratory: Yes: Regular, CTA Bilaterally Gastrointestinal: Yes: Normal Bowel Sounds, Soft Musculoskeletal: Yes: WNL Extremities: Yes: WNL Neurological: Yes: Alert, Oriented Psychiatric: Yes: Alert, Oriented Labs: CBC, BMP 02/24/17 07:50 02/24/17 06:30 Assessment/Plan patient now having bacteremia worry is is it coming from gall bladder itself or there is another source.I would put gall bladder as the first choice.i discussed with gi and the mrcp is reported as negative. also of note is that her lfts are trending higher with bilrubin also--so is there an obstructing element present and did mri miss it i think on the repeat lft we will get a picture i am going to also add amylase and lipase to the blood sepsis cholecystitis DM HTN gm negative bacteremia plan will start patient on abx will await for all cx to come back will need surgery rest as per primary hydration amylase and lipase
[2017-02-24 18:02] LABS: ALBUMIN 3.3 g/dl (3.4-5.0); BILIRUBIN,DIRECT 3.9 mg/dL (0.0-0.2); BILIRUBIN,TOTAL 4.3 mg/dL (0.2-1.0); TOT PROT 6.3 g/dl (6.4-8.2)
[2017-02-24] MEDS ORDERED: IBUPROFEN 400 MG TABLET (FP) PO ONE (19:00)
--- NOTE | 2017-02-24 21:45 | CONSULT ---
Consult Consult Specialty:: Surgery Reason for Consultation:: Acute cholecystitis - History of Present Illness Chief Complaint: Abdominal pain History of Present Illness: 61 female presents for nausea, vomiting, and epigastric abdominal pain x 1 day Started after eating States pain is somewhat improved currently U/S and MRI done History of Kita en Y Gastric Bypass - History Source History Provided By: Patient, Family Member, Medical Record Limitations to Obtaining History: No Limitations - Past Medical History Cardio/Vascular: Yes: HTN Gastrointestinal: Yes: Other (History of morbid obesity) Endocrine: Yes: Diabetes Mellitus - Past Surgical History Past Surgical History: Yes: None Additional Surgical History: Gastric Bypass 2012 - Alcohol/Substance Use Hx Alcohol Use: No History of Substance Use: reports: None - Smoking History Smoking history: Never smoked - Social History Usual Living Arrangement: With Spouse ADL: Independent Occupation: teaching assiatant History of Recent Travel: Yes ([place]eventful trip to [place]) Home Medications - Allergies Allergies/Adverse Reactions: Allergies Allergy/AdvReac Type Severity Reaction Status Date / Time No Known Allergies Allergy Verified 07/07/13 02:21 - Home Medications Home Medications: Ambulatory Orders Metformin HCl [Glucophage -] 500 mg PO DAILY #0 tablet 07/08/13 Amlodipine Besylate [Norvasc -] 5 mg PO DAILY 02/23/17 Empagliflozin/Linagliptin [Glyxambi 10 mg-5 mg Tablet] 1 each PO DAILY 02/23/17 Telmisartan 80 mg PO DAILY 02/23/17 Family Disease History - Family Disease History Family Disease History: Other: Father (:52: hrt problems), Mother (: 79 : hrt problems), Brother (3, 1 with stomach cancer), Sister (3, one with HTN / DM) Other Family History: 3 healthy children Review of Systems - Review of Systems Constitutional: denies: Fever Neck: reports: No Symptoms Cardiovascular: denies: Chest Pain Respiratory: denies: Cough Gastrointestinal: reports: Abdominal Pain, Nausea, Vomiting Genitourinary: reports: No Symptoms Neurological: denies: Change in LOC Pain Intensity: 5 Physical Exam Vital Signs: Vital Signs Temperature 99.4 F 02/24/17 16:40 Pulse Rate 95 H 02/24/17 16:40 Respiratory Rate 18 02/24/17 16:40 Blood Pressure 153/86 02/24/17 16:40 O2 Sat by Pulse Oximetry (%) 98 02/24/17 09:00 Constitutional: Yes: Calm HENT: Yes: WNL Neck: Yes: Supple Cardiovascular: Yes: Regular Rate and Rhythm Respiratory: Yes: Regular Gastrointestinal: Yes: Soft, Tenderness (+ RUQ tenderness). No: Tenderness, Rebound Extremities: Yes: WNL Neurological: Yes: Alert, Oriented Labs: CBC, BMP 02/24/17 07:50 02/24/17 06:30 Imaging - Results Ultrasound: Report Reviewed, Image Reviewed MRI: Report Reviewed, Image Reviewed Problem List - Problems (1) Acute cholecystitis due to biliary calculus Code(s): K80.00 - CALCULUS OF GALLBLADDER W ACUTE CHOLECYST W/O OBSTRUCTION (2) Elevated liver enzymes Code(s): R74.8 - ABNORMAL LEVELS OF OTHER SERUM ENZYMES Assessment/Plan 61 female with acute cholecytitis and elevated LFTs U/S and MRI show no CBD stone, + pericholecystic fluid and gallbladder wall thickening NPO IV fluids Antibiotics- ID following For laparoscopic possible open cholecystectomy in am Risks and benefits explained Discussed with both the patient and her daughter over the phone Understand and agree
[2017-02-24] MEDS ORDERED: ZOLPIDEM TARTRATE 5 MG TABLET PO ONE (22:28)
[2017-02-25] MEDS: PIPERACILLIN/TAZOB 3.375 GM 50 ML IVPB SCH ×3 (02:10→17:38)
[2017-02-25] MEDS: INSULIN (NOVOLOG) ASPART 100 UNITS/ML 10ML VIAL SQ SCH ×2 (06:23→12:34)
[2017-02-25] MEDS ORDERED: BUPIVACAINE HCL/PF 0.5% (5MG/ML) 10 ML VIAL ONE (07:18)
[2017-02-25] MEDS ORDERED: PROPOFOL 20 ML ONE ×2 (07:27)
[2017-02-25] MEDS ORDERED: ePHEDrine SULFATE 50 MG/1 ML AMPULE ONE (07:27)
[2017-02-25] MEDS ORDERED: MIDAZOLAM HCL 2 MG/2 ML SINGLE DOSE VIAL ONE (07:27)
[2017-02-25] MEDS ORDERED: SUCCINYLCHOLINE CHLORIDE 200 MG/10 ML VIAL ONE (07:27)
[2017-02-25] MEDS ORDERED: ROCURONIUM BROMIDE 50 MG/5 ML VIAL ONE (07:27)
[2017-02-25] MEDS ORDERED: PHENYLEPHRINE HCL 10 MG/1 ML SINGLE DOSE VIAL ONE ×2 (07:29→08:57)
[2017-02-25] MEDS ORDERED: LIDOCAINE HCL 2% (20ML MULTI-DOSE VIAL) NR ONE (07:29)
[2017-02-25] MEDS ORDERED: DESFLURANE GAS 240 ML BOTTLE IH ONE (07:56)
[2017-02-25 08:05] LABS: SGOT/AST 176 U/L (15-37)
[2017-02-25 08:06] LABS: BASOPHIL 0.4 % (0-2.0); EOSINOPHIL 0.8 % (0-4.5); MCH 28.4 pg (25.7-33.7); MCHC 33.3 g/dl (32.0-36.0); MEAN CELL VOLUME 85.2 fl (80-96); MEAN PLT VOLUME 9.2 fl (7.5-11.1); NEUTROPHILS 84.9 % (42.8-82.8); PLATELET COUNT 250 K/MM3 (134-434); RDW 13.9 % (11.6-15.6); WHITE BLOOD COUNT 10.5 K/mm3 (4.0-10.0)
[2017-02-25 08:14] LABS: ALBUMIN 3.1 g/dl (3.4-5.0); ALK PHOS 460 U/L (45-117); ANION GAP 13 (8-16); BILIRUBIN,DIRECT 4.4 mg/dL (0.0-0.2); CALCIUM 8.8 mg/dL (8.5-10.1); CO2 18 mmol/L (21-32); CREATININE 0.6 mg/dL (0.55-1.02); GLUCOSE,RANDOM 75 mg/dL (74-106); SGPT/ALT 169 U/L (12-78); TOT PROT 6.2 g/dl (6.4-8.2)
[2017-02-25 08:15] LABS: INR 1.22 (0.82-1.09); PROTHROMBIN TIME (PATIENT) 13.5 SEC (9.98-11.88)
[2017-02-25] MEDS ORDERED: ceFAZolin SODIUM 1 GM VIAL IVPB ONE (08:42)
[2017-02-25] MEDS ORDERED: NEOSTIGMINE METHYLSULFATE 0.5 MG/ML - 10 ML MDV ONE (08:57)
[2017-02-25] MEDS ORDERED: GLYCOPYRROLATE 0.2 MG/1 ML VIAL ONE (08:59)
[2017-02-25] MEDS ORDERED: BUPIVACAINE HCL/PF 0.5% (5MG/ML) 10 ML VIAL IJ ONE (09:55)
[2017-02-25] MEDS ORDERED: amLODIPine BESYLATE 5 MG TABLET (FP) PO SCH (10:00)
[2017-02-25] MEDS ORDERED: ONDANSETRON 4 MG/2 ML VIAL IVPUSH PRN (10:34)
[2017-02-25] MEDS ORDERED: PROMETHAZINE HCL 25 MG/1 ML VIAL IVPUSH PRN (10:34)
[2017-02-25] MEDS ORDERED: LACTATED RINGERS SOLUTION 1,000 ML IV SCH (10:45)
[2017-02-25] MEDS: HEPARIN NA (PORCINE) 5,000 UNITS/ML 1ML VIAL SQ SCH ×3 (10:59→21:45)
[2017-02-25] MEDS ORDERED: INSULIN (NOVOLOG) ASPART 100 UNITS/ML 10ML VIAL SQ SCH ×2 (11:03→16:30)
--- NOTE | 2017-02-25 11:13 | OP ---
Operative Note - Note: Operative Date: 02/25/17 Pre-Operative Diagnosis: Acute cholecystitis Operation: Laparoscopic cholecystectomy Post-Operative Diagnosis: Same as Pre-op Surgeon: Alfonzo Aparicio Call Center Analyst: Lisset Lawson Anesthesia: General Specimens Removed: Gallbladder Estimated Blood Loss (mls): 30 Operative Report Dictated: Yes
[2017-02-25] MEDS ORDERED: ONDANSETRON 4 MG/2 ML VIAL IVPB PRN (11:21)
[2017-02-25] MEDS: LACTATED RINGERS SOLUTION 1,000 ML IV SCH (11:31)
--- NOTE | 2017-02-25 11:45 | SPEC ---
DATE OF OPERATION: 02/25/2017 SURGEON: Alfonzo Aparicio MD LOAN PROCESSING SUPERVISOR: DAVION Espinoza PREOPERATIVE DIAGNOSIS: Acute cholecystitis. POSTOPERATIVE DIAGNOSIS: Acute cholecystitis. PROCEDURE: Laparoscopic cholecystectomy. SPECIMEN: Gallbladder. ESTIMATED BLOOD LOSS: 30 mL. DRAINS: None. ANESTHESIA: GET. REASON FOR PROCEDURE: This is a 61-year-old female who presents to the hospital for abdominal pain. She had a history of a Kita-en-Y gastric bypass. She was found to have gallbladder wall thickening and pericholecystic fluid on ultrasound. She was also found to have an elevated white blood cell count and elevated liver function tests. An MRCP was ordered, which showed no evidence of common bile duct stone. She was placed on antibiotics and was consented for a laparoscopic, possible open cholecystectomy. RISKS AND BENEFITS: The risks and benefits of a laparoscopic, possible open cholecystectomy were explained. These included bleeding, infection, hernia, NE , DVT, PE, injury to surrounding structures including the liver, colon, bowel, bile ducts, vessel injury, nerve injury, bile leak, and retained stones as some of the possible complications. The patient understood and signed informed consents. DESCRIPTION OF PROCEDURE: The patient was placed supine on the operating room table. The patient underwent general endotracheal intubation. The abdomen was prepped and draped in the usual sterile fashion. A timeout was performed. A periumbilical incision was made, and a 5-mm optical trocar was inserted under direct visualization with the laparoscope. Pneumoperitoneum was then established. Subsequently, a 5-mm trocar was placed in the subxiphoid area and two 5-mm trocars were placed in the right upper quadrant. The 5-mm trocar at the periumbilical region was removed and a 10-mm trocar was inserted. The patient was placed in reverse Trendelenburg, right side up position. The gallbladder was noted and was retracted cephalad and laterally. Any overlying omental adhesions were carefully dissected. The peritoneum was dissected using electrocautery. The cystic duct followed by the cystic artery were circumferentially dissected, clipped and transected. The gallbladder was removed off the liver bed using electrocautery. Hemostasis of the liver bed and surrounding area was attained using electrocautery. The gallbladder was placed in an EndoCatch bag. Copious irrigation and suction were performed until clear. The gallbladder was removed from the abdominal cavity. The fascia at the 10-mm trocar site was closed using a 0-Vicryl suture. All incision sites were irrigated and Marcaine was injected. Hemostasis of all incision sites was noted. All incision sites were closed using 4-0 Biosyn. Sterile dressings were applied. The patient tolerated the procedure well and was transferred to the recovery room in stable condition. FINDINGS: Diffuse edema of the gallbladder wall. Vinicio FORD/[id number] MTDD
--- NOTE | 2017-02-25 12:05 | SURG ---
Surgery Filtration Operator Note Filtration Operator: Lisset Lawson PA-C Date of Service: 02/25/17 Diagnosis: acute cholecystitis Procedure: laparoscopic cholecysectomy I was present for the entirety of the operative procedure. For further detail, please refer to operative report. Visit type - Case Type Case Type: ED Admission - Emergency Emergency Visit: Yes ED Registration Date: 02/23/17 Care time: The patient presented to the Emergency Department on the above date and was hospitalized for further evaluation of their emergent condition. - New patient This patient is new to me today: Yes Date on this admission: 02/25/17 - Critical Care Critical Care patient: No
[2017-02-25] MEDS: HYDROmorphone HCL CARPU-JECT 1 MG/1 ML DISP.SYRIN IVPB PRN (12:27)
--- NOTE | 2017-02-25 13:18 | PN ---
GI Progress Note Subjective: Patient S/P Lap Madonna this morning Still lethargic Daughter was here. She confirmed her mother had a ronel-en-y gastric bypass - Objective Vital Signs: Vital Signs Temperature 97.9 F 02/25/17 11:34 Pulse Rate 77 02/25/17 11:34 Respiratory Rate 18 02/25/17 11:34 Blood Pressure 110/64 02/25/17 11:34 O2 Sat by Pulse Oximetry (%) 96 02/25/17 11:25 Constitutional: Calm Cardiovascular: Yes: Regular Rate and Rhythm Respiratory: Yes: CTA Bilaterally Gastrointestinal Inspection: Yes: Scars (dressed trochar sites). No: Distention ...Auscultate: Yes: Normoactive Bowel Sounds ...Palpate: Yes: Tenderness (at trochar sites) Edema: No Labs: CBC, BMP 02/25/17 06:00 02/25/17 06:00 INR, PTT INR 1.22 (0.82-1.09) H 02/25/17 07:50 Hepatic Panel Total Bilirubin 5.0 mg/dL (0.2-1.0) H 02/25/17 06:00 Direct Bilirubin 4.4 mg/dL (0.0-0.2) H 02/25/17 06:00 AST 176 U/L (15-37) H D 02/25/17 06:00 ALT 169 U/L (12-78) H D 02/25/17 06:00 Alkaline Phosphatase 460 U/L (45-117) H D 02/25/17 06:00 Albumin 3.1 g/dl (3.4-5.0) L 02/25/17 06:00 Problem List - Problems (1) Acute calculous cholecystitis Assessment/Plan: S/P Lap Madonna Monitoring LFTs to assess for improvement now s/p lap madonna. If continuing upward trend then concomitant biliary tract pathology would need to be considered. Discussed w/ Dr. Aparicio. Intraop cholangiogram not perfomed. If LFT' s continue to rise, PTC will again need considered Code(s): K80.00 - CALCULUS OF GALLBLADDER W ACUTE CHOLECYST W/O OBSTRUCTION
[2017-02-25] MEDS ORDERED: INSULIN (NOVOLOG) ASPART 100 UNITS/ML 10ML VIAL ONE ×2 (13:27→21:28)
--- NOTE | 2017-02-25 13:58 | PN ---
Progress Note, Physician History of Present Illness: patient stable post op no complaints - Current Medication List Current Medications: Active Medications Acetaminophen (Tylenol -) 650 mg PO Q6H PRN PRN Reason: FEVER OR PAIN Amlodipine Besylate (Norvasc -) 5 mg PO DAILY [facility] Heparin Sodium (Porcine) (Heparin -) 5,000 unit SQ TID MELISSA Hydromorphone HCl (Dilaudid Injection -) 1 mg IVPB Q4H PRN PRN Reason: PAIN Last Admin: 02/25/17 12:27 Dose: 1 mg Lactated Ringer's (Lactated Ringers Solution) 1,000 mls @ 125 mls/hr IV ASDIR MELISSA Last Admin: 02/25/17 11:31 Dose: 125 mls/hr Piperacillin Sod/Tazobactam Sod (Zosyn 3.375gm Ivpb (Pre-Docked)) 50 mls @ 100 mls/hr IVPB Q8H-IV MELISSA PRN Reason: Protocol Insulin Aspart (Novolog Vial) 1 units SQ ACHS MELISSA PRN Reason: Protocol Ondansetron HCl (Zofran Injection) 4 mg IVPB Q6H PRN PRN Reason: NAUSEA - Objective Vital Signs: Vital Signs Temperature 97.9 F 02/25/17 11:34 Pulse Rate 77 02/25/17 11:34 Respiratory Rate 18 02/25/17 11:34 Blood Pressure 110/64 02/25/17 11:34 O2 Sat by Pulse Oximetry (%) 96 02/25/17 11:25 Constitutional: Yes: No Distress, Calm Cardiovascular: Yes: Regular Rate and Rhythm Respiratory: Yes: Regular, CTA Bilaterally Gastrointestinal: Yes: Soft, Tenderness Musculoskeletal: Yes: WNL Extremities: Yes: WNL Wound/Incision: Yes: Dressing Dry and Intact Neurological: Yes: Alert, Oriented Psychiatric: Yes: Alert, Oriented Labs: CBC, BMP 02/25/17 06:00 02/25/17 06:00 INR, PTT INR 1.22 (0.82-1.09) H 02/25/17 07:50 Assessment/Plan sepsis cholecystitis DM HTN gm negative bacteremia plan continue abx await for repeat cx to come back organism noted rest continue as per primary
[2017-02-25] MEDS ORDERED: HEPARIN NA (PORCINE) 5,000 UNITS/ML 1ML VIAL SQ SCH (14:00)
--- NOTE | 2017-02-25 16:58 | PN ---
Teaching Attending Note Name of Resident: Ruth Serrato ATTENDING PHYSICIAN STATEMENT I saw and evaluated the patient. I reviewed the resident's note and discussed the case with the resident. I agree with the resident's findings and plan as documented. SUBJECTIVE: seen just after CCY no fever or chills, feels tired, no N/V OBJECTIVE: NAD , AAOx3, MMM, no LAP CV: RRR, 2/6 SM at RUSB, no radiation to carotids Lungs: CTAB Ext: no edema or erythema Abd: soft, ND, minimal TTP in RUQ .has no rebound tenderness or guarding ASSESSMENT AND PLAN: 61 y/o lady with h/o HTN , DM , who presented with Abd pain. She was found to have severe sepsis , and gall stones. 1- Severe sepsis , with E coli bacteremia , due to acute cholecystitis s/p CCY POD 0. ( no perforation or abscess , d/w Dr. Aparicio) -LFTS are worse, will follow tomorrow , if trending up will need to r/o CBD obstruction -cont zosyn ,pending ID of organism in second set - liquid diet - follow repeat blood cx . - Bicarb is low today, will repeat BMP and check lactic acid 2- DM : hold oral meds SSI 3- HTN: norvasc . will resume ARB if stable HLOC Microbiology 02/23/17 15:55 Blood Culture - Final Blood - Peripheral Venous Escherichia Coli
[2017-02-25] MEDS: INSULIN SLIDING SCALE (NOVOLOG) 1 VIAL SQ SCH ×2 (17:40→21:48)
[2017-02-25 18:28] LABS: ALBUMIN 2.9 g/dl (3.4-5.0); BILIRUBIN,DIRECT 4.1 mg/dL (0.0-0.2); BILIRUBIN,TOTAL 4.4 mg/dL (0.2-1.0); TOT PROT 5.9 g/dl (6.4-8.2)
[2017-02-25 18:55] LABS: ANION GAP 15 (8-16); CALCIUM 8.9 mg/dL (8.5-10.1); CO2 16 mmol/L (21-32); CREATININE 0.8 mg/dL (0.55-1.02); GLUCOSE,RANDOM 168 mg/dL (74-106)
--- NOTE | 2017-02-25 19:17 | PN ---
Physical Exam: SUBJECTIVE: Patient seen and examined at bedside. Pt alert and oriented, nad. No acute events overnight. Pt is s/p laparascopic cholecystectomy today. Pt feels well and has no complaints apart from mild abdominal pain from her procedure. She is drinking fluids, eating ice chips. She has been urinating and passing gas, but has had no BM yet. Pt denies CP, SOB, nausea, vomiting, diarrhea. OBJECTIVE: Vital Signs Period Temp Pulse Resp BP Sys/Blackburn Pulse Ox Last 24 Hr 97.9 F-99.2 F 75-92 15-22 109-150/64-92 94-98 GENERAL: The patient is awake, alert, and fully oriented, in no acute distress. HEAD: Normal with no signs of trauma. EYES: PERRL, extraocular movements intact, sclera anicteric, conjunctiva clear. No ptosis. ENT: Ears normal, nares patent, oropharynx clear without exudates, moist mucous membranes. NECK: Trachea midline, full range of motion, supple. LUNGS: Breath sounds equal, clear to auscultation bilaterally, no wheezes, no crackles, no accessory muscle use. HEART: Regular rate and rhythm, S1, S2 without murmur, rub or gallop. ABDOMEN: Soft, tenderness to palpation, nondistended, normoactive bowel sounds, no guarding, no rebound, no hepatosplenomegaly, no masses. EXTREMITIES: 2+ pulses, warm, well-perfused, no edema. NEUROLOGICAL: Cranial nerves II through XII grossly intact. Normal speech, gait not observed. PSYCH: Normal mood, normal affect. SKIN: Warm, dry, normal turgor, no rashes or lesions noted Laboratory Results - last 24 hr 02/24/17 02/24/17 02/25/17 19:02 23:00 06:00 WBC 10.5 H D RBC 4.54 Hgb 12.9 Hct 38.7 MCV 85.2 MCHC 33.3 RDW 13.9 Plt Count 250 MPV 9.2 Neutrophils % 84.9 H Lymphocytes % 8.0 D Monocytes % 5.9 Eosinophils % 0.8 D Basophils % 0.4 INR Sodium Potassium Chloride Carbon Dioxide Anion Gap BUN Creatinine POC Glucometer 88 86 Random Glucose Calcium Total Bilirubin Direct Bilirubin AST ALT Alkaline Phosphatase Total Protein Albumin Blood Type Antibody Screen 02/25/17 02/25/17 02/25/17 06:00 06:22 07:50 WBC RBC Hgb Hct MCV MCHC RDW Plt Count MPV Neutrophils % Lymphocytes % Monocytes % Eosinophils % Basophils % INR 1.22 H Sodium 139 Potassium 4.3 Chloride 108 H Carbon Dioxide 18 L Anion Gap 13 BUN 15 Creatinine 0.6 D POC Glucometer 76 Random Glucose 75 Calcium 8.8 Total Bilirubin 5.0 H Direct Bilirubin 4.4 H AST 176 H D ALT 169 H D Alkaline Phosphatase 460 H D Total Protein 6.2 L Albumin 3.1 L Blood Type Antibody Screen 02/25/17 02/25/17 02/25/17 07:50 08:37 12:33 WBC RBC Hgb Hct MCV MCHC RDW Plt Count MPV Neutrophils % Lymphocytes % Monocytes % Eosinophils % Basophils % INR Sodium Potassium Chloride Carbon Dioxide Anion Gap BUN Creatinine POC Glucometer 104 Random Glucose Calcium Total Bilirubin Direct Bilirubin AST ALT Alkaline Phosphatase Total Protein Albumin Blood Type B POSITIVE B POSITIVE Antibody Screen Negative 02/25/17 02/25/17 02/25/17 17:00 17:00 17:32 WBC RBC Hgb Hct MCV MCHC RDW Plt Count MPV Neutrophils % Lymphocytes % Monocytes % Eosinophils % Basophils % INR Sodium 138 Potassium 4.4 Chloride 107 Carbon Dioxide 16 L Anion Gap 15 BUN 14 Creatinine 0.8 D POC Glucometer 165 Random Glucose 168 H D Calcium 8.9 Total Bilirubin 4.4 H Direct Bilirubin 4.1 H AST 223 H D ALT 178 H Alkaline Phosphatase 517 H Total Protein 5.9 L Albumin 2.9 L Blood Type Antibody Screen Active Medications Generic Name Dose Route Start Last Admin Trade Name Freq PRN Reason Stop Dose Admin Acetaminophen 650 mg 02/25/17 12:05 Tylenol - PO Q6H PRN FEVER OR PAIN Amlodipine Besylate 5 mg 02/26/17 10:00 Norvasc - PO DAILY MELISSA Heparin Sodium (Porcine) 5,000 unit 02/25/17 14:00 02/25/17 15:02 Heparin - SQ 5,000 unit TID MELISSA Administration Hydromorphone HCl 1 mg 02/25/17 12:05 02/25/17 12:27 Dilaudid Injection - IVPB 1 mg Q4H PRN Administration PAIN Lactated Ringer's 1,000 mls @ 125 mls/hr 02/25/17 11:21 02/25/17 11:31 Lactated Ringers Solution IV 125 mls/hr ASDIR MELISSA Administration Piperacillin Sod/Tazobactam Sod 50 mls @ 100 mls/hr 02/25/17 18:00 02/25/17 17: 38 Zosyn 3.375gm Ivpb (Pre-Docked) IVPB 100 mls/hr Q8H-IV MELISSA Administration Protocol Insulin Aspart 1 vial 02/25/17 16:30 02/25/17 17:40 Novolog Vial Sliding Scale - SQ 2 units ACHS MELISSA Administration Protocol Ondansetron HCl 4 mg 02/25/17 11:21 Zofran Injection IVPB Q6H PRN NAUSEA ASSESSMENT/PLAN: 61 yr old woman with NIDDM II and HTN who presented with 1 day of nausea, 4 episodes of nonbloody nonbilous vomiting and abdominal pain, now s/p urgent cholecystectomy. #Severe sepsis 2/2 cholecystitis - zosyn IVPB 3.375 q8hr to cover bowel bacteria - zofran 4mg q6hr prn - MRCP revealed acute cholecystitis and dilated gall bladder (9cm) with surrounding edema - U/S showed gall stones in gall bladder 4cm - trend lactic acid and lft's - s/p cholecystectomy #DM hold metformin and glyxma 10mg NISS, BGM ACHS #HTN norvasc 5mg po DVT: heparin bid #FEN -f/u am labs -clear liquid diet #Dispo -monitor in med/surg Visit type - Emergency Visit Emergency Visit: No - New Patient This patient is new to me today: Yes Date on this admission: 02/25/17 - Critical Care Critical Care patient: No
[2017-02-25 20:19] LABS: ARTERIAL BLD GAS O2 SATURATION 92.7 % (90-98.9); ARTERIAL BLOOD GAS BASE EXCESS -4.6 meq/l (-2-2); ARTERIAL BLOOD GAS HCO3 17.9 meq/L (22-26); ARTERIAL BLOOD GAS PO2 57.6 mmHg (80-100); ARTERIAL BLOOD GAS pH 7.44 (7.35-7.45)
[2017-02-25 20:22] LABS: ALLENS TEST POSITIVE; ART PUNCT SITE RIGHT RADIAL; PT. ON O2? NO
[2017-02-26 01:17] LABS: ANION GAP 10 (8-16); CALCIUM 8.7 mg/dL (8.5-10.1); CO2 21 mmol/L (21-32); CREATININE 0.9 mg/dL (0.55-1.02); GLUCOSE,RANDOM 140 mg/dL (74-106)
[2017-02-26] MEDS: PIPERACILLIN/TAZOB 3.375 GM 50 ML IVPB SCH ×3 (02:06→17:30)
[2017-02-26] MEDS: HEPARIN NA (PORCINE) 5,000 UNITS/ML 1ML VIAL SQ SCH ×3 (06:03→22:17)
[2017-02-26] MEDS: INSULIN SLIDING SCALE (NOVOLOG) 1 VIAL SQ SCH ×4 (06:08→22:17)
[2017-02-26 08:14] LABS: BASOPHIL 0.1 % (0-2.0); MCHC 34.3 g/dl (32.0-36.0); MEAN CELL VOLUME 84.7 fl (80-96); NEUTROPHILS 83.9 % (42.8-82.8); PLATELET COUNT 230 K/MM3 (134-434); RDW 14.1 % (11.6-15.6); WHITE BLOOD COUNT 9.5 K/mm3 (4.0-10.0)
[2017-02-26 08:32] LABS: ALBUMIN 2.4 g/dl (3.4-5.0); ANION GAP 8 (8-16); CALCIUM 8.5 mg/dL (8.5-10.1); CO2 21 mmol/L (21-32); GLUCOSE,RANDOM 127 mg/dL (74-106)
[2017-02-26 08:35] LABS: ALK PHOS 536 U/L (45-117); BILIRUBIN,TOTAL 3.3 mg/dL (0.2-1.0); CREATININE 0.7 mg/dL (0.55-1.02); SGOT/AST 191 U/L (15-37); SGPT/ALT 164 U/L (12-78); TOT PROT 5.2 g/dl (6.4-8.2)
[2017-02-26] MEDS: amLODIPine BESYLATE 5 MG TABLET (FP) PO SCH (09:42)
--- NOTE | 2017-02-26 09:45 | PN ---
Progress Note, Physician Chief Complaint: Pt. resting comfortably, no GA complaints. - Current Medication List Current Medications: Active Medications Acetaminophen (Tylenol -) 650 mg PO Q6H PRN PRN Reason: FEVER OR PAIN Amlodipine Besylate (Norvasc -) 5 mg PO DAILY [facility] Heparin Sodium (Porcine) (Heparin -) 5,000 unit SQ TID MELISSA Last Admin: 02/26/17 06:03 Dose: 5,000 unit Hydromorphone HCl (Dilaudid Injection -) 1 mg IVPB Q4H PRN PRN Reason: PAIN Last Admin: 02/25/17 12:27 Dose: 1 mg Lactated Ringer's (Lactated Ringers Solution) 1,000 mls @ 125 mls/hr IV ASDIR MELISSA Last Admin: 02/25/17 11:31 Dose: 125 mls/hr Piperacillin Sod/Tazobactam Sod (Zosyn 3.375gm Ivpb (Pre-Docked)) 50 mls @ 100 mls/hr IVPB Q8H-IV MELISSA PRN Reason: Protocol Last Admin: 02/26/17 02:06 Dose: 100 mls/hr Insulin Aspart (Novolog Vial Sliding Scale -) 1 vial SQ ACHS MELISSA PRN Reason: Protocol Last Admin: 02/26/17 06:08 Dose: Not Given Ondansetron HCl (Zofran Injection) 4 mg IVPB Q6H PRN PRN Reason: NAUSEA - Objective Vital Signs: Vital Signs Temperature 98.9 F 02/26/17 06:20 Pulse Rate 84 02/26/17 06:20 Respiratory Rate 20 02/26/17 06:20 Blood Pressure 155/92 02/26/17 06:20 O2 Sat by Pulse Oximetry (%) 98 02/25/17 13:00 Constitutional: Yes: Well Nourished, No Distress, Calm Neurological: Yes: WNL, Alert, Oriented Labs: CBC, BMP 02/26/17 06:10 02/26/17 06:10 INR, PTT INR 1.22 (0.82-1.09) H 02/25/17 07:50 Assessment/Plan POD#1 s/p laparoscopic cholecystectomy under GA. Doing well. D/C from anesthesia care.
--- NOTE | 2017-02-26 11:24 | PN ---
Progress Note, Physician History of Present Illness: patient stable post op no complaints - Current Medication List Current Medications: Active Medications Acetaminophen (Tylenol -) 650 mg PO Q6H PRN PRN Reason: FEVER OR PAIN Amlodipine Besylate (Norvasc -) 5 mg PO DAILY [facility] Last Admin: 02/26/17 09:42 Dose: 5 mg Heparin Sodium (Porcine) (Heparin -) 5,000 unit SQ TID MELISSA Last Admin: 02/26/17 06:03 Dose: 5,000 unit Hydromorphone HCl (Dilaudid Injection -) 1 mg IVPB Q4H PRN PRN Reason: PAIN Last Admin: 02/25/17 12:27 Dose: 1 mg Lactated Ringer's (Lactated Ringers Solution) 1,000 mls @ 125 mls/hr IV ASDIR [facility] Last Admin: 02/25/17 11:31 Dose: 125 mls/hr Piperacillin Sod/Tazobactam Sod (Zosyn 3.375gm Ivpb (Pre-Docked)) 50 mls @ 100 mls/hr IVPB Q8H-IV MELISSA PRN Reason: Protocol Last Admin: 02/26/17 09:42 Dose: 100 mls/hr Insulin Aspart (Novolog Vial Sliding Scale -) 1 vial SQ ACHS MELISSA PRN Reason: Protocol Last Admin: 02/26/17 06:08 Dose: Not Given Ondansetron HCl (Zofran Injection) 4 mg IVPB Q6H PRN PRN Reason: NAUSEA - Objective Vital Signs: Vital Signs Temperature 98.9 F 02/26/17 06:20 Pulse Rate 84 02/26/17 06:20 Respiratory Rate 20 02/26/17 06:20 Blood Pressure 155/92 02/26/17 06:20 O2 Sat by Pulse Oximetry (%) 98 02/25/17 13:00 Constitutional: Yes: No Distress, Calm HENT: Yes: Atraumatic, Normocephalic Cardiovascular: Yes: Regular Rate and Rhythm Respiratory: Yes: Regular, CTA Bilaterally Gastrointestinal: Yes: Normal Bowel Sounds, Soft Musculoskeletal: Yes: WNL Extremities: Yes: WNL Neurological: Yes: Alert, Oriented Psychiatric: Yes: Alert, Oriented Labs: CBC, BMP 02/26/17 06:10 02/26/17 06:10 INR, PTT INR 1.22 (0.82-1.09) H 02/25/17 07:50 Assessment/Plan sepsis cholecystitis DM HTN gm negative bacteremia plan continue abx repeat cx negative wbc now normal
--- NOTE | 2017-02-26 11:38 | PN ---
Progress Note (short form) - Note Progress Note: Subjective:no fever or chills, feels better. has no CP or SOB Objective: Vital Signs: Last Vital Signs Temp Pulse Resp BP Pulse Ox 98.9 F 84 20 155/92 98 02/26/17 06:20 02/26/17 06:20 02/26/17 06:20 02/26/17 06:20 02/25/17 13:00 Laboratory Results - last 24 hr 02/25/17 02/25/17 02/25/17 12:33 17:00 17:00 WBC RBC Hgb Hct MCV MCHC RDW Plt Count MPV Neutrophils % Lymphocytes % Monocytes % Eosinophils % Basophils % Puncture Site ABG pH ABG pCO2 at Pt Temp ABG pO2 at Pt Temp ABG HCO3 ABG O2 Sat (Measured) ABG O2 Content ABG Base Excess Eladio Test Oxygen Flow Rate PEEP Sodium 138 Potassium 4.4 Chloride 107 Carbon Dioxide 16 L Anion Gap 15 BUN 14 Creatinine 0.8 D Creat Clearance w eGFR POC Glucometer 104 Random Glucose 168 H D Lactic Acid Calcium 8.9 Total Bilirubin 4.4 H Direct Bilirubin 4.1 H AST 223 H D ALT 178 H Alkaline Phosphatase 517 H Total Protein 5.9 L Albumin 2.9 L 02/25/17 02/25/17 02/25/17 17:32 18:00 20:20 WBC RBC Hgb Hct MCV MCHC RDW Plt Count MPV Neutrophils % Lymphocytes % Monocytes % Eosinophils % Basophils % Puncture Site Right radial ABG pH 7.44 ABG pCO2 at Pt Temp 26.7 L ABG pO2 at Pt Temp 57.6 L ABG HCO3 17.9 L ABG O2 Sat (Measured) 92.7 ABG O2 Content 14.8 L ABG Base Excess -4.6 L Eladio Test Positive Oxygen Flow Rate No PEEP 0.0 Sodium Potassium Chloride Carbon Dioxide Anion Gap BUN Creatinine Creat Clearance w eGFR POC Glucometer 165 Random Glucose Lactic Acid 1.7 Calcium Total Bilirubin Direct Bilirubin AST ALT Alkaline Phosphatase Total Protein Albumin 02/25/17 02/26/17 02/26/17 21:47 00:40 06:07 WBC RBC Hgb Hct MCV MCHC RDW Plt Count MPV Neutrophils % Lymphocytes % Monocytes % Eosinophils % Basophils % Puncture Site ABG pH ABG pCO2 at Pt Temp ABG pO2 at Pt Temp ABG HCO3 ABG O2 Sat (Measured) ABG O2 Content ABG Base Excess Eladio Test Oxygen Flow Rate PEEP Sodium 140 Potassium 4.2 Chloride 109 H Carbon Dioxide 21 D Anion Gap 10 BUN 14 Creatinine 0.9 Creat Clearance w eGFR POC Glucometer 166 127 Random Glucose 140 H Lactic Acid Calcium 8.7 Total Bilirubin Direct Bilirubin AST ALT Alkaline Phosphatase Total Protein Albumin 02/26/17 02/26/17 06:10 06:10 WBC 9.5 RBC 4.19 Hgb 12.2 Hct 35.5 MCV 84.7 MCHC 34.3 RDW 14.1 Plt Count 230 MPV 9.0 Neutrophils % 83.9 H Lymphocytes % 10.1 D Monocytes % 5.9 Eosinophils % 0.0 D Basophils % 0.1 Puncture Site ABG pH ABG pCO2 at Pt Temp ABG pO2 at Pt Temp ABG HCO3 ABG O2 Sat (Measured) ABG O2 Content ABG Base Excess Eladio Test Oxygen Flow Rate PEEP Sodium 138 Potassium 4.0 Chloride 109 H Carbon Dioxide 21 Anion Gap 8 BUN 15 Creatinine 0.7 D Creat Clearance w eGFR > 60 POC Glucometer Random Glucose 127 H Lactic Acid Calcium 8.5 Total Bilirubin 3.3 H D Direct Bilirubin AST 191 H ALT 164 H Alkaline Phosphatase 536 H Total Protein 5.2 L Albumin 2.4 L Physical Exam: NAD , AAOx3, MMM, no LAP CV: RRR, 2/6 SM at RUSB, no radiation to carotids Lungs: CTAB Ext: no edema or erythema Abd: soft, ND, minimal TTP in RUQ .has no rebound tenderness or guarding ASSESSMENT AND PLAN: 61 y/o lady with h/o HTN , DM , who presented with Abd pain. She was found to have severe sepsis , and gall stones. 1- Severe sepsis , with E coli bacteremia , due to acute cholecystitis s/p CCY POD 1. ALT, AST, bili improved but ALk phos has increased - will repeat LFTS tomorrow , and depending on the trend , the next step will be -cont zosyn ,Identification of the organism in second set is still pending - advance diet to soft - Bicarb normalized again, ABG last night with metabolic acidosis with resp compensation , not clear on etiology . monitor BMP 2- DM : hold oral meds SSI 3- HTN: cont norvasc . resume ARB ( diovan in substitution of telmesartan ) HLOC Visit type - Emergency Visit Emergency Visit: Yes ED Registration Date: 02/23/17 Care time: The patient presented to the Emergency Department on the above date and was hospitalized for further evaluation of their emergent condition. - New Patient This patient is new to me today: No - Critical Care Critical Care patient: No
[2017-02-26] MEDS ORDERED: INSULIN (NOVOLOG) ASPART 100 UNITS/ML 10ML VIAL ONE (12:53)
[2017-02-26] MEDS: LACTATED RINGERS SOLUTION 1,000 ML IV SCH (12:54)
--- NOTE | 2017-02-26 14:15 | PN ---
GI Progress Note Subjective: No acute events Ms. Bartlett states feeling well + flatus, no BM as of yet - Objective Vital Signs: Vital Signs Temperature 98.9 F 02/26/17 06:20 Pulse Rate 84 02/26/17 06:20 Respiratory Rate 20 02/26/17 06:20 Blood Pressure 155/92 02/26/17 06:20 O2 Sat by Pulse Oximetry (%) 98 02/25/17 13:00 Constitutional: Calm Eyes: No: Sclera Icterus Cardiovascular: Yes: Regular Rate and Rhythm. No: Murmur Respiratory: Yes: CTA Bilaterally Gastrointestinal Inspection: Yes: Scars (dressed trochar sites). No: Distention ...Auscultate: Yes: Normoactive Bowel Sounds ...Palpate: Yes: Tenderness (Tenderness at trochar sites) ...Percussion: No: Tympanitic Edema: No Neurological: Yes: Alert, Oriented Labs: CBC, BMP 02/26/17 06:10 02/26/17 06:10 INR, PTT INR 1.22 (0.82-1.09) H 02/25/17 07:50 Laboratory Tests 02/25/17 02/26/17 17:00 06:10 Total Bilirubin 4.4 H 3.3 H D Direct Bilirubin 4.1 H AST 223 H D 191 H ALT 178 H 164 H Alkaline Phosphatase 517 H 536 H Albumin 2.4 L Problem List - Problems (1) Acute calculous cholecystitis Assessment/Plan: S/P Lap Lynda POD 1 Bacteremia Bilirubin coming down however ALP remains elevated. I am ordering a repeat abdominal US to assess for development of any ductal dilatation that would suggest retained CBD stone. If so and if LFT's do not continue to improve, PTC would need to be considered and referral made to tertiary care center to arrange evaluation of cile duct Abx per ID Monitor LFTs Code(s): K80.00 - CALCULUS OF GALLBLADDER W ACUTE CHOLECYST W/O OBSTRUCTION
[2017-02-26] MEDS: HYDROmorphone HCL CARPU-JECT 1 MG/1 ML DISP.SYRIN IVPB PRN (22:21)
--- NOTE | 2017-02-26 23:07 | PN ---
Progress Note (short form) - Note Progress Note: POD 1 Laparoscopic cholecystectomy Pain controlled with medication On diet Vital Signs Period Temp Pulse Resp BP Sys/Blackburn Pulse Ox Last 24 Hr 98.9 F-100.2 F 83-91 20-20 123-155/76-92 96 Abd soft, dressings in place CBC,CMP WBC 9.5 K/mm3 (4.0-10.0) 02/26/17 06:10 RBC 4.19 M/mm3 (3.60-5.2) 02/26/17 06:10 Hgb 12.2 GM/dL (10.7-15.3) 02/26/17 06:10 Hct 35.5 % (32.4-45.2) 02/26/17 06:10 MCV 84.7 fl (80-96) 02/26/17 06:10 MCHC 34.3 g/dl (32.0-36.0) 02/26/17 06:10 RDW 14.1 % (11.6-15.6) 02/26/17 06:10 Plt Count 230 K/MM3 (134-434) 02/26/17 06:10 MPV 9.0 fl (7.5-11.1) 02/26/17 06:10 Neutrophils % 83.9 % (42.8-82.8) H 02/26/17 06:10 Lymphocytes % 10.1 % (8-40) D 02/26/17 06:10 Monocytes % 5.9 % (3.8-10.2) 02/26/17 06:10 Eosinophils % 0.0 % (0-4.5) D 02/26/17 06:10 Basophils % 0.1 % (0-2.0) 02/26/17 06:10 Sodium 138 mmol/L (136-145) 02/26/17 06:10 Potassium 4.0 mmol/L (3.5-5.1) 02/26/17 06:10 Chloride 109 mmol/L (98-107) H 02/26/17 06:10 Carbon Dioxide 21 mmol/L (21-32) 02/26/17 06:10 Anion Gap 8 (8-16) 02/26/17 06:10 BUN 15 mg/dL (7-18) 02/26/17 06:10 Creatinine 0.7 mg/dL (0.55-1.02) D 02/26/17 06:10 Creat Clearance w eGFR > 60 (>60) 02/26/17 06:10 POC Glucometer 115 UNITS (()) 02/26/17 22:16 Random Glucose 127 mg/dL (74-106) H 02/26/17 06:10 Lactic Acid 1.7 mmol/L (0.4-2.0) 02/25/17 18:00 Calcium 8.5 mg/dL (8.5-10.1) 02/26/17 06:10 Total Bilirubin 3.3 mg/dL (0.2-1.0) H D 02/26/17 06:10 Direct Bilirubin 4.1 mg/dL (0.0-0.2) H 02/25/17 17:00 AST 191 U/L (15-37) H 02/26/17 06:10 ALT 164 U/L (12-78) H 02/26/17 06:10 Alkaline Phosphatase 536 U/L (45-117) H 02/26/17 06:10 Creatine Kinase 77 IU/L (26-192) 02/23/17 14:10 Troponin I < 0.02 ng/ml (0.00-0.05) 02/23/17 14:10 Total Protein 5.2 g/dl (6.4-8.2) L 02/26/17 06:10 Albumin 2.4 g/dl (3.4-5.0) L 02/26/17 06:10 Total Amylase 21 U/L (25-115) L 02/24/17 15:40 Lipase 51 U/L (73-393) L 02/24/17 15:40 OOB Antibiotics CBC, CMP in am Problem List - Problems (1) Acute cholecystitis due to biliary calculus Code(s): K80.00 - CALCULUS OF GALLBLADDER W ACUTE CHOLECYST W/O OBSTRUCTION (2) Elevated liver enzymes Code(s): R74.8 - ABNORMAL LEVELS OF OTHER SERUM ENZYMES
[2017-02-27] MEDS: PIPERACILLIN/TAZOB 3.375 GM 50 ML IVPB SCH ×2 (01:28→10:35)
[2017-02-27] MEDS: HEPARIN NA (PORCINE) 5,000 UNITS/ML 1ML VIAL SQ SCH ×3 (06:43→21:48)
[2017-02-27] MEDS: INSULIN SLIDING SCALE (NOVOLOG) 1 VIAL SQ SCH ×4 (06:46→21:49)
[2017-02-27 08:18] LABS: BASOPHIL 0.4 % (0-2.0); EOSINOPHIL 0.5 % (0-4.5); MCH 28.6 pg (25.7-33.7); MCHC 34.1 g/dl (32.0-36.0); MEAN CELL VOLUME 83.7 fl (80-96); MEAN PLT VOLUME 9.1 fl (7.5-11.1); NEUTROPHILS 76.3 % (42.8-82.8); PLATELET COUNT 226 K/MM3 (134-434); RDW 14.1 % (11.6-15.6); WHITE BLOOD COUNT 8.2 K/mm3 (4.0-10.0)
[2017-02-27 08:46] LABS: ALBUMIN 2.3 g/dl (3.4-5.0); ANION GAP 10 (8-16); BILIRUBIN,DIRECT 1.7 mg/dL (0.0-0.2); CALCIUM 7.9 mg/dL (8.5-10.1); CO2 24 mmol/L (21-32); CREATININE 0.4 mg/dL (0.55-1.02); GLUCOSE,RANDOM 111 mg/dL (74-106); SGOT/AST 109 U/L (15-37); SGPT/ALT 123 U/L (12-78)
[2017-02-27 08:48] LABS: ALK PHOS 507 U/L (45-117); BILIRUBIN,TOTAL 2.3 mg/dL (0.2-1.0); TOT PROT 4.9 g/dl (6.4-8.2)
--- NOTE | 2017-02-27 09:40 | PN ---
Progress Note (short form) - Note Progress Note: Pt without any any complaints of nausea or emsis, tolerating a soft diet. Vital Signs Period Temp Pulse Resp BP Sys/Blackburn Pulse Ox Last 24 Hr 97.9 F-100.2 F 83-101 18-20 123-148/72-92 96 GEN: Appears comfortable ABD: sfot, non-distended, inc tenderness. Umbilical dressing removed. No erythema or drainage noted. c/d/i with dermabond. Other incisions with small bandaid. No erythema noted. CMP Sodium 139 mmol/L (136-145) 02/27/17 06:10 Potassium 3.6 mmol/L (3.5-5.1) 02/27/17 06:10 Chloride 105 mmol/L (98-107) 02/27/17 06:10 Carbon Dioxide 24 mmol/L (21-32) 02/27/17 06:10 Anion Gap 10 (8-16) 02/27/17 06:10 BUN 12 mg/dL (7-18) 02/27/17 06:10 Creatinine 0.4 mg/dL (0.55-1.02) L D 02/27/17 06:10 Creat Clearance w eGFR > 60 (>60) 02/27/17 06:10 POC Glucometer 109 UNITS (()) 02/27/17 06:44 Random Glucose 111 mg/dL (74-106) H 02/27/17 06:10 Lactic Acid 1.7 mmol/L (0.4-2.0) 02/25/17 18:00 Calcium 7.9 mg/dL (8.5-10.1) L 02/27/17 06:10 Total Bilirubin 2.3 mg/dL (0.2-1.0) H D 02/27/17 06:10 Direct Bilirubin 1.7 mg/dL (0.0-0.2) H D 02/27/17 06:10 AST 109 U/L (15-37) H D 02/27/17 06:10 ALT 123 U/L (12-78) H D 02/27/17 06:10 Alkaline Phosphatase 507 U/L (45-117) H 02/27/17 06:10 Creatine Kinase 77 IU/L (26-192) 02/23/17 14:10 Troponin I < 0.02 ng/ml (0.00-0.05) 02/23/17 14:10 Total Protein 4.9 g/dl (6.4-8.2) L 02/27/17 06:10 Albumin 2.3 g/dl (3.4-5.0) L 02/27/17 06:10 Total Amylase 21 U/L (25-115) L 02/24/17 15:40 Lipase 51 U/L (73-393) L 02/24/17 15:40 Free T4 Cancelled 02/27/17 06:10 CBC, BMP 02/27/17 06:10 Problem List - Problems (1) S/P laparoscopic cholecystectomy Assessment/Plan: POD#2, tolerating a soft diet. Repeat LFTs with improvement in T bili, ALk phos remains elevated. Us ordered by GI to evaluate for dilated bile ducts Pt may shower Surgery to follow, continue to trend LFTS daily D/w Dr. Aparicio Code(s): Z90.49 - ACQUIRED ABSENCE OF OTHER SPECIFIED PARTS OF DIGESTIVE TRACT
[2017-02-27] MEDS: VALSARTAN 80 MG TABLET (UD) PO SCH (10:36)
[2017-02-27] MEDS: amLODIPine BESYLATE 5 MG TABLET (FP) PO SCH (10:36)
--- NOTE | 2017-02-27 10:36 | PN ---
Physical Exam: SUBJECTIVE: Patient seen and examined Patient was sitting comfortably in chair. Feeling Good. States last night she has mild pain in the port site but now its gone. States she had dinner and breakfast and she had tolerated it well. Denies nausea and vomiting. States that she is passing flatus but had no bowel movements. States urine is dark yellow in color. Had a fever on 100.2 last evening. Denies fever and chills. Denies yellow discoloration of skin. Denies shortness of breath and cough. Denies pruritus OBJECTIVE: Vital Signs Period Temp Pulse Resp BP Sys/Blackburn Pulse Ox Last 24 Hr 97.9 F-100.2 F 83-101 18-20 123-148/72-92 96 GENERAL: The patient is awake, alert, and fully oriented, in no acute distress. HEAD: Normal with no signs of trauma. ENT: oropharynx clear without exudates, moist mucous membrane, mild yellow discoloration on pallet. NECK: Trachea midline, full range of motion, supple. LUNGS: Breath sounds equal, mild crackles present on right basal area. HEART: s1s2 normal. ABDOMEN: Soft, nontender, nondistended, normoactive bowel sounds, no guarding, no rigidity, mild tenderness in port sites. Bandaid present on port sites. Umblical port site healthy. EXTREMITIES: no edema. Laboratory Results - last 24 hr 02/26/17 02/26/17 02/26/17 12:51 17:19 22:16 WBC RBC Hgb Hct MCV MCHC RDW Plt Count MPV Neutrophils % Lymphocytes % Monocytes % Eosinophils % Basophils % Sodium Potassium Chloride Carbon Dioxide Anion Gap BUN Creatinine Creat Clearance w eGFR POC Glucometer 195 152 115 Random Glucose Calcium Total Bilirubin Direct Bilirubin AST ALT Alkaline Phosphatase Total Protein Albumin Free T4 02/27/17 02/27/17 02/27/17 06:10 06:10 06:10 WBC 8.2 RBC 3.95 Hgb 11.3 Hct 33.0 MCV 83.7 MCHC 34.1 RDW 14.1 Plt Count 226 MPV 9.1 Neutrophils % 76.3 Lymphocytes % 15.1 D Monocytes % 7.7 Eosinophils % 0.5 D Basophils % 0.4 D Sodium 139 Potassium 3.6 Chloride 105 Carbon Dioxide 24 Anion Gap 10 BUN 12 Creatinine 0.4 L D Creat Clearance w eGFR > 60 POC Glucometer Random Glucose 111 H Calcium 7.9 L Total Bilirubin 2.3 H D Direct Bilirubin 1.7 H D Cancelled AST 109 H D ALT 123 H D Alkaline Phosphatase 507 H Total Protein 4.9 L Albumin 2.3 L Free T4 Cancelled 02/27/17 06:44 WBC RBC Hgb Hct MCV MCHC RDW Plt Count MPV Neutrophils % Lymphocytes % Monocytes % Eosinophils % Basophils % Sodium Potassium Chloride Carbon Dioxide Anion Gap BUN Creatinine Creat Clearance w eGFR POC Glucometer 109 Random Glucose Calcium Total Bilirubin Direct Bilirubin AST ALT Alkaline Phosphatase Total Protein Albumin Free T4 Active Medications Generic Name Dose Route Start Last Admin Trade Name Freq PRN Reason Stop Dose Admin Acetaminophen 650 mg 02/25/17 12:05 Tylenol - PO Q6H PRN FEVER OR PAIN Amlodipine Besylate 5 mg 02/26/17 10:00 02/26/17 09:42 Norvasc - PO [address] [facility] Administration Heparin Sodium (Porcine) 5,000 unit 02/25/17 14:00 02/27/17 06:43 Heparin - SQ 5,[address] [facility] Administration Hydromorphone HCl 1 mg 02/25/17 12:05 02/26/17 22:21 Dilaudid Injection - IVPB 1 mg Q4H PRN Administration PAIN Lactated Ringer's 1,000 mls @ 125 mls/hr 02/25/17 11:21 02/26/17 12:54 Lactated Ringers Solution IV Not Given ASDIR [facility] Piperacillin Sod/Tazobactam Sod 50 mls @ 100 mls/hr 02/25/17 18:00 02/27/17 01: 28 Zosyn 3.375gm Ivpb (Pre-Docked) IVPB 100 mls/hr Q8H-IV MELISSA Administration Protocol Insulin Aspart 1 vial 02/25/17 16:30 02/27/17 06:46 Novolog Vial Sliding Scale - SQ Not Given ACHS [facility] Protocol Ondansetron HCl 4 mg 02/25/17 11:21 Zofran Injection IVPB Q6H PRN NAUSEA Valsartan 80 mg 02/27/17 10:00 Diovan - PO DAILY [facility] ASSESSMENT/PLAN: - Acute Cholecystitis S/P Lap Lynda POD 2. - Bacteremia from e.coli. - H/O Gastric bypass in 2012. - HTN - DM Plan -Bilirubin ( 3.3---> 2.3), AST, ALT are decreasing. ALP is still elevated. Abdominal USG is pending which is ordered to assess intra and extra hepatic ductal dilatation that would suggest retained CBD stone. - Antibiotics as per ID. - Monitor LFT. Visit type - Emergency Visit Emergency Visit: Yes ED Registration Date: 02/23/17 Care time: The patient presented to the Emergency Department on the above date and was hospitalized for further evaluation of their emergent condition. - New Patient This patient is new to me today: Yes Date on this admission: 02/27/17 - Critical Care Critical Care patient: No
--- NOTE | 2017-02-27 11:16 | PN ---
Teaching Attending Note Name of Resident: Kenneth Roche ATTENDING PHYSICIAN STATEMENT I saw and evaluated the patient I reviewed the resident's note and discussed the case with the resident. I agree with and addeneded the resident's findings and plan as documented SUBJECTIVE: No acute events Overall states "feeling great" OBJECTIVE: Temp 100.2 from yesterday evening, otherwise afebrile Anicteric Hrt: RRR Lungs: faint crackles at right lung base Abd: +trochar scars, non-distended, + BS. Mild TTP at trochar sites ASSESSMENT: Acute cholecysttitis Elevated liver chemistries slowly improving. Non-dilated biliary tract on MRCP. ? concomitant passed CBD stone PLAN: Monitor LFT's Abdominal US to evaluate ductal system Tolerating diet Problem List - Problems (1) Acute calculous cholecystitis Code(s): K80.00 - CALCULUS OF GALLBLADDER W ACUTE CHOLECYST W/O OBSTRUCTION
--- NOTE | 2017-02-27 12:48 | PATH ---
Surgical Pathology Report Patient Name: DANG RAY Med. Rec. #: [id number] /Age/Gender: 1955 (Age: 61) / F Account: [id number] Location: [facility] MED/SURG Taken: 02/25/2017 Received: 02/25/2017 Reported: 02/27/2017 Physicians: Alfonzo Aparicio M.D. Specimen(s) Received GALLBLADDER Clinical History Acute cholecystitis Final Diagnosis GALLBLADDER, CHOLECYSTECTOMY: ACUTE AND CHRONIC CHOLECYSTITIS, CHOLELITHIASIS. Electronically Signed Andrews Hall M.D. Gross Description Received in formalin, labeled "gallbladder" is a 11 x 3.5 x 2 cm gallbladder with an attached 0.2 cm in length cystic duct. The gallbladder serosa is mtz-red, focally hemorrhagic. Opening of the gallbladder reveals multiple mtz-brown irregular gallstones ranging from 0.5-2.5 cm in greatest dimension. The gallbladder mucosa is mtz-red, focally hemorrhagic and eroded. The gallbladder wall thickness averages 0.3 cm. Beach Attendant sections are submitted in one cassette. AF/02/25/2017 final/02/25/2017
--- NOTE | 2017-02-27 14:56 | PN ---
Progress Note, Physician History of Present Illness: patient doing better feels better had a temp of 100.2 last night stable since then - Current Medication List Current Medications: Active Medications Acetaminophen (Tylenol -) 650 mg PO Q6H PRN PRN Reason: FEVER OR PAIN Amlodipine Besylate (Norvasc -) 5 mg PO DAILY [facility] Last Admin: 02/27/17 10:36 Dose: 5 mg Heparin Sodium (Porcine) (Heparin -) 5,000 unit SQ TID [facility] Last Admin: 02/27/17 06:43 Dose: 5,000 unit Hydromorphone HCl (Dilaudid Injection -) 1 mg IVPB Q4H PRN PRN Reason: PAIN Last Admin: 02/26/17 22:21 Dose: 1 mg Lactated Ringer's (Lactated Ringers Solution) 1,000 mls @ 125 mls/hr IV ASDIR [facility] Last Admin: 02/26/17 12:54 Dose: Not Given Piperacillin Sod/Tazobactam (Sod 3.375 gm/ Dextrose) 50 mls @ 100 mls/hr IVPB Q8H-IV MELISSA PRN Reason: Protocol Insulin Aspart (Novolog Vial Sliding Scale -) 1 vial SQ ACHS [facility] PRN Reason: Protocol Last Admin: 02/27/17 12:38 Dose: Not Given Ondansetron HCl (Zofran Injection) 4 mg IVPB Q6H PRN PRN Reason: NAUSEA Valsartan (Diovan -) 80 mg PO DAILY [facility] Last Admin: 02/27/17 10:36 Dose: 80 mg - Objective Vital Signs: Vital Signs Temperature 98.2 F 02/27/17 09:00 Pulse Rate 80 02/27/17 11:15 Respiratory Rate 18 02/27/17 09:00 Blood Pressure 148/91 02/27/17 09:00 O2 Sat by Pulse Oximetry (%) 94 L 02/27/17 11:15 Constitutional: Yes: No Distress, Calm Cardiovascular: Yes: Regular Rate and Rhythm Respiratory: Yes: Regular, CTA Bilaterally Gastrointestinal: Yes: Normal Bowel Sounds, Soft Musculoskeletal: Yes: WNL Extremities: Yes: WNL Neurological: Yes: Alert, Oriented Psychiatric: Yes: Alert, Oriented Labs: CBC, BMP 02/27/17 06:10 02/27/17 06:10 INR, PTT INR 1.22 (0.82-1.09) H 02/25/17 07:50 Assessment/Plan sepsis cholecystitis DM HTN gm negative bacteremia plan continue abx repeat cx negative liver enzymes decreasing slowly still had fever clinically doing well
[2017-02-27] MEDS: LACTATED RINGERS SOLUTION 1,000 ML IV SCH (17:00)
[2017-02-27] MEDS: PIPERACILLIN/TAZOB 3.375 GM 3.375 GM in DEXTROSE 5%-WATER - 50 ML IVPB SCH (18:10)
--- NOTE | 2017-02-27 18:36 | PN ---
Physical Exam: SUBJECTIVE: Patient seen and examined OBJECTIVE: Vital Signs Period Temp Pulse Resp BP Sys/Blackburn Pulse Ox Last 24 Hr 97.5 F-98.9 F 70-101 18-20 127-148/72-92 94-96 GENERAL: The patient is awake, alert, and fully oriented, in no acute distress. HEAD: Normal with no signs of trauma. EYES: PERRL, extraocular movements intact, sclera anicteric, conjunctiva clear. No ptosis. ENT: Ears normal, nares patent, oropharynx clear without exudates, moist mucous membranes. NECK: Trachea midline, full range of motion, supple. LUNGS: Breath sounds equal, clear to auscultation bilaterally, no wheezes, no crackles, no accessory muscle use. HEART: Regular rate and rhythm, S1, S2 without murmur, rub or gallop. ABDOMEN: Soft, nontender, nondistended, normoactive bowel sounds, no guarding, no rebound, no hepatosplenomegaly, no masses. EXTREMITIES: 2+ pulses, warm, well-perfused, no edema. NEUROLOGICAL: Cranial nerves II through XII grossly intact. Normal speech, gait not observed. PSYCH: Normal mood, normal affect. SKIN: Warm, dry, normal turgor, no rashes or lesions noted Laboratory Results - last 24 hr 02/26/17 02/27/17 02/27/17 22:16 06:10 06:10 WBC 8.2 RBC 3.95 Hgb 11.3 Hct 33.0 MCV 83.7 MCHC 34.1 RDW 14.1 Plt Count 226 MPV 9.1 Neutrophils % 76.3 Lymphocytes % 15.1 D Monocytes % 7.7 Eosinophils % 0.5 D Basophils % 0.4 D Sodium 139 Potassium 3.6 Chloride 105 Carbon Dioxide 24 Anion Gap 10 BUN 12 Creatinine 0.4 L D Creat Clearance w eGFR > 60 POC Glucometer 115 Random Glucose 111 H Calcium 7.9 L Total Bilirubin 2.3 H D Direct Bilirubin 1.7 H D AST 109 H D ALT 123 H D Alkaline Phosphatase 507 H Total Protein 4.9 L Albumin 2.3 L Free T4 Cancelled 02/27/17 02/27/17 02/27/17 06:10 06:44 12:15 WBC RBC Hgb Hct MCV MCHC RDW Plt Count MPV Neutrophils % Lymphocytes % Monocytes % Eosinophils % Basophils % Sodium Potassium Chloride Carbon Dioxide Anion Gap BUN Creatinine Creat Clearance w eGFR POC Glucometer 109 133 Random Glucose Calcium Total Bilirubin Direct Bilirubin Cancelled AST ALT Alkaline Phosphatase Total Protein Albumin Free T4 02/27/17 16:59 WBC RBC Hgb Hct MCV MCHC RDW Plt Count MPV Neutrophils % Lymphocytes % Monocytes % Eosinophils % Basophils % Sodium Potassium Chloride Carbon Dioxide Anion Gap BUN Creatinine Creat Clearance w eGFR POC Glucometer 145 Random Glucose Calcium Total Bilirubin Direct Bilirubin AST ALT Alkaline Phosphatase Total Protein Albumin Free T4 Active Medications Generic Name Dose Route Start Last Admin Trade Name Freq PRN Reason Stop Dose Admin Acetaminophen 650 mg 02/25/17 12:05 Tylenol - PO Q6H PRN FEVER OR PAIN Amlodipine Besylate 5 mg 02/26/17 10:00 02/27/17 10:36 Norvasc - PO 5 mg DAILY MELISSA Administration Heparin Sodium (Porcine) 5,000 unit 02/25/17 14:00 02/27/17 17:00 Heparin - SQ 5,000 unit TID MELISSA Administration Hydromorphone HCl 1 mg 02/25/17 12:05 02/26/17 22:21 Dilaudid Injection - IVPB 1 mg Q4H PRN Administration PAIN Lactated Ringer's 1,000 mls @ 125 mls/hr 02/25/17 11:21 02/27/17 17:00 Lactated Ringers Solution IV 125 mls/hr ASDIR MELISSA Administration Piperacillin Sod/Tazobactam 50 mls @ 100 mls/hr 02/27/17 10:56 02/27/17 18:10 Sod 3.375 gm/ Dextrose IVPB 100 mls/hr Q8H-IV MELISSA Administration Protocol Insulin Aspart 1 vial 02/25/17 16:30 02/27/17 17:01 Novolog Vial Sliding Scale - SQ Not Given ACHS MELISSA Protocol Ondansetron HCl 4 mg 02/25/17 11:21 Zofran Injection IVPB Q6H PRN NAUSEA Valsartan 80 mg 02/27/17 10:00 02/27/17 10:36 Diovan - PO 80 mg DAILY MELISSA Administration ASSESSMENT/PLAN: 61 yr old woman with NIDDM II and HTN who presented with 1 day of nausea, 4 episodes of nonbloody nonbilous vomiting and abdominal pain, now s/p urgent cholecystectomy. #Severe sepsis 2/2 cholecystitis - zosyn IVPB 3.375 q8hr to cover bowel bacteria - zofran 4mg q6hr prn - MRCP revealed acute cholecystitis and dilated gall bladder (9cm) with surrounding edema - U/S showed gall stones in gall bladder 4cm - lactic acid stable at 1.6 - lft trending down -AST 109, ALT 123, AlkP 507 - s/p cholecystectomy #DM hold metformin and glyxma 10mg NISS, BGM ACHS #HTN norvasc 5mg po DVT: heparin bid #FEN -f/u am labs -soft diet #Dispo -monitor in med/surg Visit type - Emergency Visit Emergency Visit: No - New Patient This patient is new to me today: No - Critical Care Critical Care patient: No
--- NOTE | 2017-02-27 20:05 | PN ---
Teaching Attending Note Name of Resident: Edgar Lobo ATTENDING PHYSICIAN STATEMENT I saw and evaluated the patient. I reviewed the resident's note and discussed the case with the resident. I agree with the resident's findings and plan as documented. SUBJECTIVE: Patient is comfortable with no acute distress OBJECTIVE: Vital Signs Temperature 97.5 F L 02/27/17 18:25 Pulse Rate 89 02/27/17 18:25 Respiratory Rate 20 02/27/17 18:25 Blood Pressure 138/85 02/27/17 18:25 O2 Sat by Pulse Oximetry (%) 94 L 02/27/17 11:15 PE: as per resident's note CBCD WBC 8.2 K/mm3 (4.0-10.0) 02/27/17 06:10 RBC 3.95 M/mm3 (3.60-5.2) 02/27/17 06:10 Hgb 11.3 GM/dL (10.7-15.3) 02/27/17 06:10 Hct 33.0 % (32.4-45.2) 02/27/17 06:10 MCV 83.7 fl (80-96) 02/27/17 06:10 MCHC 34.1 g/dl (32.0-36.0) 02/27/17 06:10 RDW 14.1 % (11.6-15.6) 02/27/17 06:10 Plt Count 226 K/MM3 (134-434) 02/27/17 06:10 MPV 9.1 fl (7.5-11.1) 02/27/17 06:10 CMP Sodium 139 mmol/L (136-145) 02/27/17 06:10 Potassium 3.6 mmol/L (3.5-5.1) 02/27/17 06:10 Chloride 105 mmol/L (98-107) 02/27/17 06:10 Carbon Dioxide 24 mmol/L (21-32) 02/27/17 06:10 Anion Gap 10 (8-16) 02/27/17 06:10 BUN 12 mg/dL (7-18) 02/27/17 06:10 Creatinine 0.4 mg/dL (0.55-1.02) L D 02/27/17 06:10 Creat Clearance w eGFR > 60 (>60) 02/27/17 06:10 Random Glucose 111 mg/dL (74-106) H 02/27/17 06:10 Calcium 7.9 mg/dL (8.5-10.1) L 02/27/17 06:10 Total Bilirubin 2.3 mg/dL (0.2-1.0) H D 02/27/17 06:10 AST 109 U/L (15-37) H D 02/27/17 06:10 ALT 123 U/L (12-78) H D 02/27/17 06:10 Alkaline Phosphatase 507 U/L (45-117) H 02/27/17 06:10 Total Protein 4.9 g/dl (6.4-8.2) L 02/27/17 06:10 Albumin 2.3 g/dl (3.4-5.0) L 02/27/17 06:10 CARDIAC ENZYMES Creatine Kinase 77 IU/L (26-192) 02/23/17 14:10 Troponin I < 0.02 ng/ml (0.00-0.05) 02/23/17 14:10 Current Medications Generic Name Dose Route Start Last Admin Trade Name Freq PRN Reason Stop Dose Admin Acetaminophen 650 mg 02/25/17 12:05 Tylenol - PO Q6H PRN FEVER OR PAIN Amlodipine Besylate 5 mg 02/26/17 10:00 02/27/17 10:36 Norvasc - PO 5 mg DAILY MELISSA Administration Heparin Sodium (Porcine) 5,000 unit 02/25/17 14:00 02/27/17 17:00 Heparin - SQ 5,000 unit TID MELISSA Administration Hydromorphone HCl 1 mg 02/25/17 12:05 02/26/17 22:21 Dilaudid Injection - IVPB 1 mg Q4H PRN Administration PAIN Lactated Ringer's 1,000 mls @ 125 mls/hr 02/25/17 11:21 02/27/17 17:00 Lactated Ringers Solution IV 125 mls/hr ASDIR MELISSA Administration Piperacillin Sod/Tazobactam 50 mls @ 100 mls/hr 02/27/17 10:56 02/27/17 18:10 Sod 3.375 gm/ Dextrose IVPB 100 mls/hr Q8H-IV MELISSA Administration Protocol Insulin Aspart 1 vial 02/25/17 16:30 07/05/17 17:01 Novolog Vial Sliding Scale - SQ Not Given ACHS [facility] Protocol Ondansetron HCl 4 mg 02/25/17 11:21 Zofran Injection IVPB Q6H PRN NAUSEA Valsartan 80 mg 02/27/17 10:00 02/27/17 10:36 Diovan - PO 80 mg DAILY [facility] Administration Home Medications Medication Instructions Recorded Metformin HCl [Glucophage -] 500 mg PO DAILY #0 tablet 07/08/13 Amlodipine Besylate [Norvasc -] 5 mg PO DAILY 02/23/17 Empagliflozin/Linagliptin 1 each PO DAILY 02/23/17 [Glyxambi 10 mg-5 mg Tablet] Telmisartan 80 mg PO DAILY 02/23/17 Docusate Sodium [Colace -] 100 mg PO TID #90 capsule 02/25/17 Oxycodone HCl/Acetaminophen 1 - 2 tab PO Q6H #28 tab MDD 4 02/25/17 [Percocet 5-325 mg Tablet] Microbiology 02/25/17 06:00 Blood - Peripheral Venous Blood Culture - Preliminary NO GROWTH OBTAINED AFTER 96 HOURS, INCUBATION TO CONTINUE FOR 1 DAYS. 02/23/17 15:55 Blood - Peripheral Venous Blood Culture - Final Escherichia Coli 02/23/17 15:55 Blood - Peripheral Venous Blood Culture - Preliminary Lactose Fermenting Neg Bacilli ASSESSMENT AND PLAN: 61 y/o lady with h/o HTN , DM , who presented with Abd pain. She was found to have severe sepsis , and gall stones. # POD #1 s/p cholecystectomy due to Acute Cholecystitis ,ALT, AST, bili improved but ALk phos has increased will monitor # E coli bacteremia: On Iv Zosyn continue # DM : hold oral meds, SSI with coverage # HTN: cont norvasc . on diovan in substitution of telmesartan DVT Px: Heparin
[2017-02-27] MEDS: ACETAMINOPHEN 325 MG TABLET (FP) PO PRN (21:48)
[2017-02-28] MEDS: PIPERACILLIN/TAZOB 3.375 GM 3.375 GM in DEXTROSE 5%-WATER - 50 ML IVPB SCH ×3 (02:16→17:08)
[2017-02-28] MEDS: HEPARIN NA (PORCINE) 5,000 UNITS/ML 1ML VIAL SQ SCH ×3 (06:20→21:45)
[2017-02-28] MEDS: INSULIN SLIDING SCALE (NOVOLOG) 1 VIAL SQ SCH ×4 (06:21→21:42)
[2017-02-28 08:57] LABS: ALBUMIN 2.4 g/dl (3.4-5.0); ANION GAP 7 (8-16); CO2 29 mmol/L (21-32); CREATININE 0.4 mg/dL (0.55-1.02); GLUCOSE,RANDOM 123 mg/dL (74-106); SGOT/AST 69 U/L (15-37); SGPT/ALT 97 U/L (12-78)
[2017-02-28 08:59] LABS: ALK PHOS 535 U/L (45-117); BILIRUBIN,TOTAL 1.8 mg/dL (0.2-1.0); TOT PROT 5.4 g/dl (6.4-8.2)
[2017-02-28 09:00] LABS: BILIRUBIN,DIRECT 1.2 mg/dL (0.0-0.2); BILIRUBIN,TOTAL 1.7 mg/dL (0.2-1.0); TOT PROT 5.4 g/dl (6.4-8.2)
[2017-02-28] MEDS ORDERED: PIPERACILLIN/TAZOBACTAM 3.375 GM VIAL IVPB ONE ×3 (10:02→20:13)
[2017-02-28] MEDS ORDERED: DEXTROSE 5%-WATER - 50 ML IVPB ONE ×3 (10:03→20:14)
[2017-02-28] MEDS: VALSARTAN 80 MG TABLET (UD) PO SCH (10:04)
[2017-02-28] MEDS: amLODIPine BESYLATE 5 MG TABLET (FP) PO SCH (10:05)
--- NOTE | 2017-02-28 10:32 | PN ---
Progress Note (short form) - Note Progress Note: No acute events Pain controlled Tolerating diet Vital Signs Period Temp Pulse Resp BP Sys/Blackburn Pulse Ox Last 24 Hr 97.5 F-99.0 F 70-89 18-20 127-150/79-85 94-94 Abd soft, NT CBC,CMP WBC 8.2 K/mm3 (4.0-10.0) 02/27/17 06:10 RBC 3.95 M/mm3 (3.60-5.2) 02/27/17 06:10 Hgb 11.3 GM/dL (10.7-15.3) 02/27/17 06:10 Hct 33.0 % (32.4-45.2) 02/27/17 06:10 MCV 83.7 fl (80-96) 02/27/17 06:10 MCHC 34.1 g/dl (32.0-36.0) 02/27/17 06:10 RDW 14.1 % (11.6-15.6) 02/27/17 06:10 Plt Count 226 K/MM3 (134-434) 02/27/17 06:10 MPV 9.1 fl (7.5-11.1) 02/27/17 06:10 Neutrophils % 76.3 % (42.8-82.8) 02/27/17 06:10 Lymphocytes % 15.1 % (8-40) D 02/27/17 06:10 Monocytes % 7.7 % (3.8-10.2) 02/27/17 06:10 Eosinophils % 0.5 % (0-4.5) D 02/27/17 06:10 Basophils % 0.4 % (0-2.0) D 02/27/17 06:10 Sodium 140 mmol/L (136-145) 02/28/17 06:00 Potassium 3.5 mmol/L (3.5-5.1) 02/28/17 06:00 Chloride 104 mmol/L (98-107) 02/28/17 06:00 Carbon Dioxide 29 mmol/L (21-32) D 02/28/17 06:00 Anion Gap 7 (8-16) L 02/28/17 06:00 BUN 6 mg/dL (7-18) L D 02/28/17 06:00 Creatinine 0.4 mg/dL (0.55-1.02) L 02/28/17 06:00 Creat Clearance w eGFR > 60 (>60) 02/28/17 06:00 POC Glucometer 112 UNITS (()) 02/28/17 06:10 Random Glucose 123 mg/dL (74-106) H 02/28/17 06:00 Lactic Acid 1.7 mmol/L (0.4-2.0) 02/25/17 18:00 Calcium 8.0 mg/dL (8.5-10.1) L 02/28/17 06:00 Total Bilirubin 1.7 mg/dL (0.2-1.0) H 02/28/17 06:00 Direct Bilirubin 1.2 mg/dL (0.0-0.2) H D 02/28/17 06:00 AST 71 U/L (15-37) H 02/28/17 06:00 ALT 101 U/L (12-78) H 02/28/17 06:00 Alkaline Phosphatase 535 U/L (45-117) H 02/28/17 06:00 Creatine Kinase 77 IU/L (26-192) 02/23/17 14:10 Troponin I < 0.02 ng/ml (0.00-0.05) 02/23/17 14:10 Total Protein 5.4 g/dl (6.4-8.2) L 02/28/17 06:00 Albumin 2.4 g/dl (3.4-5.0) L 02/28/17 06:00 Total Amylase 21 U/L (25-115) L 02/24/17 15:40 Lipase 51 U/L (73-393) L 02/24/17 15:40 Free T4 Cancelled 02/27/17 06:10 Bilirubin improving U/S- no ductal dilation, CBD 4.5mm OOB Antibiotics per ID If bilirubin continues to improve, discharge planning Problem List - Problems (1) Acute cholecystitis due to biliary calculus Code(s): K80.00 - CALCULUS OF GALLBLADDER W ACUTE CHOLECYST W/O OBSTRUCTION (2) Elevated liver enzymes Code(s): R74.8 - ABNORMAL LEVELS OF OTHER SERUM ENZYMES
[2017-02-28] MEDS ORDERED: INSULIN (NOVOLOG) ASPART 100 UNITS/ML 10ML VIAL ONE ×3 (12:01→17:34)
[2017-02-28] MEDS ORDERED: LACTULOSE 20 GM/30 ML UDC (FOR ORAL USE ONLY) PO ONE (12:30)
--- NOTE | 2017-02-28 12:34 | PN ---
GI Progress Note Subjective: States feeling great No abdominal pain Non N/V Bilirubin improved however ALP elevatation still lingering No fevers reported - Objective Vital Signs: Vital Signs Temperature 99.0 F 02/28/17 09:21 Pulse Rate 82 02/28/17 09:21 Respiratory Rate 20 02/28/17 09:21 Blood Pressure 133/85 02/28/17 09:21 O2 Sat by Pulse Oximetry (%) 94 L 02/27/17 21:00 Constitutional: Calm Eyes: No: Sclera Icterus Cardiovascular: Yes: Regular Rate and Rhythm Respiratory: Yes: CTA Bilaterally Gastrointestinal Inspection: No: Distention ...Auscultate: Yes: Normoactive Bowel Sounds ...Palpate: Yes: Tenderness (Mild tenderness at trochar sites) Edema: No Neurological: Yes: Alert, Oriented Labs: CBC, BMP 02/27/17 06:10 02/28/17 06:00 INR, PTT INR 1.22 (0.82-1.09) H 02/25/17 07:50 Problem List - Problems (1) Acute calculous cholecystitis Assessment/Plan: Clinically much improved with improvement in bilirubin. ALP elevation however persists. ? if just reactive from cholecystitis however prior to discharge would like to see a continued improving trend. Code(s): K80.00 - CALCULUS OF GALLBLADDER W ACUTE CHOLECYST W/O OBSTRUCTION
[2017-02-28] MEDS: DOCUSATE SODIUM 100 MG CAPSULE (FP) PO SCH ×2 (14:24→21:45)
--- NOTE | 2017-02-28 16:21 | PN ---
Progress Note, Physician History of Present Illness: patient doing well no fevers but temp still in 99 no issues - Current Medication List Current Medications: Active Medications Acetaminophen (Tylenol -) 650 mg PO Q6H PRN PRN Reason: FEVER OR PAIN Last Admin: 02/27/17 21:48 Dose: 650 mg Amlodipine Besylate (Norvasc -) 5 mg PO DAILY [facility] Last Admin: 02/28/17 10:05 Dose: 5 mg Docusate Sodium (Colace -) 100 mg PO TID [facility] Last Admin: 02/28/17 14:24 Dose: 100 mg Heparin Sodium (Porcine) (Heparin -) 5,000 unit SQ TID [facility] Last Admin: 02/28/17 14:24 Dose: 5,000 unit Piperacillin Sod/Tazobactam (Sod 3.375 gm/ Dextrose) 50 mls @ 100 mls/hr IVPB Q8H-IV MELISSA PRN Reason: Protocol Last Admin: 02/28/17 10:05 Dose: 100 mls/hr Insulin Aspart (Novolog Vial Sliding Scale -) 1 vial SQ ACHS [facility] PRN Reason: Protocol Last Admin: 02/28/17 12:26 Dose: Not Given Ondansetron HCl (Zofran Injection) 4 mg IVPB Q6H PRN PRN Reason: NAUSEA Valsartan (Diovan -) 80 mg PO DAILY [facility] Last Admin: 02/28/17 10:04 Dose: 80 mg - Objective Vital Signs: Vital Signs Temperature 99.0 F 02/28/17 15:01 Pulse Rate 95 H 02/28/17 15:01 Respiratory Rate 18 02/28/17 15:01 Blood Pressure 142/99 02/28/17 15:01 O2 Sat by Pulse Oximetry (%) 95 02/28/17 09:00 Constitutional: Yes: No Distress, Calm Cardiovascular: Yes: Regular Rate and Rhythm Respiratory: Yes: Regular, CTA Bilaterally Gastrointestinal: Yes: Normal Bowel Sounds, Soft Musculoskeletal: Yes: WNL Extremities: Yes: WNL Wound/Incision: Yes: Clean/Dry Neurological: Yes: Alert, Oriented Labs: CBC, BMP 02/27/17 06:10 02/28/17 06:00 INR, PTT INR 1.22 (0.82-1.09) H 02/25/17 07:50 Assessment/Plan sepsis cholecystitis DM HTN gm negative bacteremia plan continue abx liver enzymes improving alp still high will see tomorrow temp curve and alp then decide final about abx
--- NOTE | 2017-02-28 16:25 | PN ---
Physical Exam: SUBJECTIVE: Patient seen and examined OBJECTIVE: Vital Signs Period Temp Pulse Resp BP Sys/Blackburn Pulse Ox Last 24 Hr 97.5 F-99.0 F 76-95 18-20 133-150/82-99 94-95 GENERAL: The patient is awake, alert, and fully oriented, in no acute distress. HEAD: Normal with no signs of trauma. EYES: PERRL, extraocular movements intact, sclera anicteric, conjunctiva clear. No ptosis. ENT: Ears normal, nares patent, oropharynx clear without exudates, moist mucous membranes. NECK: Trachea midline, full range of motion, supple. LUNGS: Breath sounds equal, clear to auscultation bilaterally, no wheezes, no crackles, no accessory muscle use. HEART: Regular rate and rhythm, S1, S2 without murmur, rub or gallop. ABDOMEN: Soft, mild tenderness, nondistended, normoactive bowel sounds, no guarding, no rebound, no hepatosplenomegaly, no masses. EXTREMITIES: 2+ pulses, warm, well-perfused, no edema. NEUROLOGICAL: Cranial nerves II through XII grossly intact. Normal speech, gait not observed. PSYCH: Normal mood, normal affect. SKIN: Warm, dry, normal turgor, no rashes or lesions noted Laboratory Results - last 24 hr 02/27/17 02/27/17 02/28/17 16:59 21:47 06:00 Sodium 140 Potassium 3.5 Chloride 104 Carbon Dioxide 29 D Anion Gap 7 L BUN 6 L D Creatinine 0.4 L Creat Clearance w eGFR > 60 POC Glucometer 145 125 Random Glucose 123 H Calcium 8.0 L Total Bilirubin 1.8 H D Direct Bilirubin AST 69 H D ALT 97 H D Alkaline Phosphatase 535 H Total Protein 5.4 L Albumin 2.4 L 02/28/17 02/28/17 02/28/17 06:00 06:10 12:18 Sodium Potassium Chloride Carbon Dioxide Anion Gap BUN Creatinine Creat Clearance w eGFR POC Glucometer 112 120 Random Glucose Calcium Total Bilirubin 1.7 H Direct Bilirubin 1.2 H D AST 71 H ALT 101 H Alkaline Phosphatase 535 H Total Protein 5.4 L Albumin 2.4 L Active Medications Generic Name Dose Route Start Last Admin Trade Name Freq PRN Reason Stop Dose Admin Acetaminophen 650 mg 02/25/17 12:05 02/27/17 21:48 Tylenol - PO 650 mg Q6H PRN Administration FEVER OR PAIN Amlodipine Besylate 5 mg 02/26/17 10:00 02/28/17 10:05 Norvasc - PO 5 mg DAILY MELISSA Administration Docusate Sodium 100 mg 02/28/17 14:00 02/28/17 14:24 Colace - PO 100 mg TID MELISSA Administration Heparin Sodium (Porcine) 5,000 unit 02/25/17 14:00 02/28/17 14:24 Heparin - SQ 5,000 unit TID MELISSA Administration Piperacillin Sod/Tazobactam 50 mls @ 100 mls/hr 02/27/17 10:56 02/28/17 10:05 Sod 3.375 gm/ Dextrose IVPB 100 mls/hr Q8H-IV MELISSA Administration Protocol Insulin Aspart 1 vial 02/25/17 16:30 02/28/17 12:26 Novolog Vial Sliding Scale - SQ Not Given ACHS [facility] Protocol Ondansetron HCl 4 mg 02/25/17 11:21 Zofran Injection IVPB Q6H PRN NAUSEA Valsartan 80 mg 02/27/17 10:00 02/28/17 10:04 Diovan - PO 80 mg DAILY MELISSA Administration ASSESSMENT/PLAN: 61 yr old woman with NIDDM II and HTN who presented with 1 day of nausea, 4 episodes of nonbloody nonbilous vomiting and abdominal pain, now s/p urgent cholecystectomy. #Severe sepsis 2/2 cholecystitis - zosyn IVPB 3.375 q8hr to cover bowel bacteria - zofran 4mg q6hr prn - MRCP revealed acute cholecystitis and dilated gall bladder (9cm) with surrounding edema - U/S showed gall stones in gall bladder 4cm - lactic acid stable at 1.6 - lft trending down except AlkP. ? ascending cholangitis DDx. will follow labs -AST 71, ALT 101, AlkP 535 -Tbili 1.7, Dbili 1.2, - s/p cholecystectomy -ID consult appreciated. recs f/u labs in am #DM hold metformin and glyxma 10mg NISS, BGM ACHS #HTN norvasc 5mg po DVT: heparin bid #FEN -f/u am labs -soft diet #Dispo -monitor in med/surg Visit type - Emergency Visit Emergency Visit: Yes ED Registration Date: 02/23/17 Care time: The patient presented to the Emergency Department on the above date and was hospitalized for further evaluation of their emergent condition. - New Patient This patient is new to me today: No - Critical Care Critical Care patient: No
--- NOTE | 2017-02-28 21:43 | PN ---
Teaching Attending Note Name of Resident: Edgar Lobo ATTENDING PHYSICIAN STATEMENT I saw and evaluated the patient. I reviewed the resident's note and discussed the case with the resident. I agree with the resident's findings and plan as documented. SUBJECTIVE: Comfortable with no acute distress. No fever or chills, no shortness of breath. OBJECTIVE: Vital Signs Temperature 98.6 F 02/28/17 16:20 Pulse Rate 80 02/28/17 16:20 Respiratory Rate 20 02/28/17 16:20 Blood Pressure 143/78 02/28/17 16:20 O2 Sat by Pulse Oximetry (%) 95 02/28/17 09:00 PE: per resident's note CBCD WBC 8.2 K/mm3 (4.0-10.0) 02/27/17 06:10 RBC 3.95 M/mm3 (3.60-5.2) 02/27/17 06:10 Hgb 11.3 GM/dL (10.7-15.3) 02/27/17 06:10 Hct 33.0 % (32.4-45.2) 02/27/17 06:10 MCV 83.7 fl (80-96) 02/27/17 06:10 MCHC 34.1 g/dl (32.0-36.0) 02/27/17 06:10 RDW 14.1 % (11.6-15.6) 02/27/17 06:10 Plt Count 226 K/MM3 (134-434) 02/27/17 06:10 MPV 9.1 fl (7.5-11.1) 02/27/17 06:10 CMP Sodium 140 mmol/L (136-145) 02/28/17 06:00 Potassium 3.5 mmol/L (3.5-5.1) 02/28/17 06:00 Chloride 104 mmol/L (98-107) 02/28/17 06:00 Carbon Dioxide 29 mmol/L (21-32) D 02/28/17 06:00 Anion Gap 7 (8-16) L 02/28/17 06:00 BUN 6 mg/dL (7-18) L D 02/28/17 06:00 Creatinine 0.4 mg/dL (0.55-1.02) L 02/28/17 06:00 Creat Clearance w eGFR > 60 (>60) 02/28/17 06:00 Random Glucose 123 mg/dL (74-106) H 02/28/17 06:00 Calcium 8.0 mg/dL (8.5-10.1) L 02/28/17 06:00 Total Bilirubin 1.7 mg/dL (0.2-1.0) H 02/28/17 06:00 AST 71 U/L (15-37) H 02/28/17 06:00 ALT 101 U/L (12-78) H 02/28/17 06:00 Alkaline Phosphatase 535 U/L (45-117) H 02/28/17 06:00 Total Protein 5.4 g/dl (6.4-8.2) L 02/28/17 06:00 Albumin 2.4 g/dl (3.4-5.0) L 02/28/17 06:00 CARDIAC ENZYMES Creatine Kinase 77 IU/L (26-192) 02/23/17 14:10 Troponin I < 0.02 ng/ml (0.00-0.05) 02/23/17 14:10 Current Medications Generic Name Dose Route Start Last Admin Trade Name Freq PRN Reason Stop Dose Admin Acetaminophen 650 mg 02/25/17 12:05 02/27/17 21:48 Tylenol - PO 650 mg Q6H PRN Administration FEVER OR PAIN Amlodipine Besylate 5 mg 02/26/17 10:00 02/28/17 10:05 Norvasc - PO 5 mg DAILY MELISSA Administration Docusate Sodium 100 mg 02/28/17 14:00 02/28/17 14:24 Colace - PO 100 mg TID MELISSA Administration Heparin Sodium (Porcine) 5,000 unit 02/25/17 14:00 02/28/17 14:24 Heparin - SQ 5,000 unit TID MELISSA Administration Piperacillin Sod/Tazobactam 50 mls @ 100 mls/hr 02/27/17 10:56 02/28/17 17:08 Sod 3.375 gm/ Dextrose IVPB 100 mls/hr Q8H-IV MELISSA Administration Protocol Insulin Aspart 1 vial 02/25/17 16:30 02/28/17 16:48 Novolog Vial Sliding Scale - SQ Not Given [facility]S [facility] Protocol Ondansetron HCl 4 mg 02/25/17 11:21 Zofran Injection IVPB Q6H PRN NAUSEA Valsartan 80 mg 02/27/17 10:00 02/28/17 10:04 Diovan - PO 80 mg DAILY MELISSA Administration Home Medications Medication Instructions Recorded Metformin HCl [Glucophage -] 500 mg PO DAILY #0 tablet 07/08/13 Amlodipine Besylate [Norvasc -] 5 mg PO DAILY 02/23/17 Empagliflozin/Linagliptin 1 each PO DAILY 02/23/17 [Glyxambi 10 mg-5 mg Tablet] Telmisartan 80 mg PO DAILY 02/23/17 Docusate Sodium [Colace -] 100 mg PO TID #90 capsule 02/25/17 Oxycodone HCl/Acetaminophen 1 - 2 tab PO Q6H #28 tab MDD 4 02/25/17 [Percocet 5-325 mg Tablet] ASSESSMENT AND PLAN: 61 y/o lady with h/o HTN , DM , who presented with Abd pain. She was found to have severe sepsis , and gall stones. # POD #2 s/p cholecystectomy due to Acute Cholecystitis ,ALT, AST, bili improving monitor ALk phos since level is getting higher, will monitor # E coli bacteremia: On Iv Zosyn continue # DM : hold oral meds, SSI with coverage # HTN: cont norvasc . on diovan in substitution of telmesartan DVT Px: Heparin
[2017-03-01] MEDS: PIPERACILLIN/TAZOB 3.375 GM 3.375 GM in DEXTROSE 5%-WATER - 50 ML IVPB SCH ×3 (01:50→18:04)
[2017-03-01] MEDS: INSULIN SLIDING SCALE (NOVOLOG) 1 VIAL SQ SCH ×4 (06:07→21:44)
[2017-03-01] MEDS: DOCUSATE SODIUM 100 MG CAPSULE (FP) PO SCH ×3 (06:08→21:45)
[2017-03-01] MEDS: HEPARIN NA (PORCINE) 5,000 UNITS/ML 1ML VIAL SQ SCH ×3 (06:08→21:45)
[2017-03-01 08:06] LABS: BASOPHIL 0.4 % (0-2.0); EOSINOPHIL 1.7 % (0-4.5); MCH 28.5 pg (25.7-33.7); MCHC 34.3 g/dl (32.0-36.0); MEAN CELL VOLUME 83.2 fl (80-96); NEUTROPHILS 68.8 % (42.8-82.8); PLATELET COUNT 288 K/MM3 (134-434); RDW 14.2 % (11.6-15.6); WHITE BLOOD COUNT 9.3 K/mm3 (4.0-10.0)
[2017-03-01 08:27] LABS: ALBUMIN 2.6 g/dl (3.4-5.0); ANION GAP 8 (8-16); BILIRUBIN,DIRECT 0.9 mg/dL (0.0-0.2); BILIRUBIN,TOTAL 1.5 mg/dL (0.2-1.0); CALCIUM 8.5 mg/dL (8.5-10.1); CO2 29 mmol/L (21-32); CREATININE 0.4 mg/dL (0.55-1.02); GLUCOSE,RANDOM 133 mg/dL (74-106); SGOT/AST 54 U/L (15-37); SGPT/ALT 80 U/L (12-78); TOT PROT 5.9 g/dl (6.4-8.2)
[2017-03-01 08:28] LABS: ALK PHOS 556 U/L (45-117)
[2017-03-01] MEDS ORDERED: PIPERACILLIN/TAZOBACTAM 3.375 GM VIAL IVPB ONE ×2 (09:21→17:42)
[2017-03-01] MEDS ORDERED: DEXTROSE 5%-WATER - 50 ML IVPB ONE ×2 (09:21→17:42)
[2017-03-01] MEDS: VALSARTAN 80 MG TABLET (UD) PO SCH (09:25)
[2017-03-01] MEDS: amLODIPine BESYLATE 5 MG TABLET (FP) PO SCH (09:26)
--- NOTE | 2017-03-01 14:14 | PN ---
Progress Note, Physician History of Present Illness: patient doing well no fevers no other issues - Current Medication List Current Medications: Active Medications Acetaminophen (Tylenol -) 650 mg PO Q6H PRN PRN Reason: FEVER OR PAIN Last Admin: 02/27/17 21:48 Dose: 650 mg Amlodipine Besylate (Norvasc -) 5 mg PO DAILY [facility] Last Admin: 03/01/17 09:26 Dose: 5 mg Docusate Sodium (Colace -) 100 mg PO TID [facility] Last Admin: 03/01/17 14:10 Dose: 100 mg Heparin Sodium (Porcine) (Heparin -) 5,000 unit SQ TID [facility] Last Admin: 03/01/17 14:10 Dose: 5,000 unit Piperacillin Sod/Tazobactam (Sod 3.375 gm/ Dextrose) 50 mls @ 100 mls/hr IVPB Q8H-IV MELISSA PRN Reason: Protocol Last Admin: 03/01/17 09:26 Dose: 100 mls/hr Insulin Aspart (Novolog Vial Sliding Scale -) 1 vial SQ ACHS [facility] PRN Reason: Protocol Last Admin: 03/01/17 12:03 Dose: Not Given Ondansetron HCl (Zofran Injection) 4 mg IVPB Q6H PRN PRN Reason: NAUSEA Valsartan (Diovan -) 80 mg PO DAILY [facility] Last Admin: 03/01/17 09:25 Dose: 80 mg - Objective Vital Signs: Vital Signs Temperature 98.7 F 03/01/17 08:31 Pulse Rate 83 03/01/17 08:31 Respiratory Rate 0 L 03/01/17 08:31 Blood Pressure 136/100 03/01/17 08:31 O2 Sat by Pulse Oximetry (%) 94 L 03/01/17 09:00 Constitutional: Yes: No Distress, Calm Cardiovascular: Yes: Regular Rate and Rhythm Respiratory: Yes: Regular, CTA Bilaterally Musculoskeletal: Yes: WNL Extremities: Yes: WNL Neurological: Yes: Alert, Oriented Psychiatric: Yes: Alert, Oriented Labs: CBC, BMP 03/01/17 06:30 03/01/17 06:30 INR, PTT INR 1.22 (0.82-1.09) H 02/25/17 07:50 Assessment/Plan sepsis cholecystitis DM HTN gm negative bacteremia plan continue abx liver enzymes improving alk phos still increasing all other parameters decreasing we can stop abx after todays dose is over worry about the increasing alk phos
--- NOTE | 2017-03-01 14:23 | PN ---
Physical Exam: SUBJECTIVE: Patient seen and examined at bedside. No acute events overnight. Mild abdominal pain. No other complaints. Pt denies headache, chest pain, sob, abdominal pain, dysuria, diarrhea. Pt had a bowel movement last night. OBJECTIVE: Vital Signs Period Temp Pulse Resp BP Sys/Blackburn Pulse Ox Last 24 Hr 98.4 F-99.0 F 80-95 0-20 136-148/78-100 94-95 GENERAL: The patient is awake, alert, and fully oriented, in no acute distress. HEAD: Normal with no signs of trauma. EYES: PERRL, extraocular movements intact, sclera anicteric, conjunctiva clear. No ptosis. ENT: Ears normal, nares patent, oropharynx clear without exudates, moist mucous membranes. NECK: Trachea midline, full range of motion, supple. LUNGS: Breath sounds equal, clear to auscultation bilaterally, no wheezes, no crackles, no accessory muscle use. HEART: Regular rate and rhythm, S1, S2 without murmur, rub or gallop. ABDOMEN: Soft, nontender, nondistended, normoactive bowel sounds, no guarding, no rebound, no hepatosplenomegaly, no masses. mild ttp in RUQ EXTREMITIES: 2+ pulses, warm, well-perfused, no edema. NEUROLOGICAL: Cranial nerves II through XII grossly intact. Normal speech, gait not observed. PSYCH: Normal mood, normal affect. SKIN: Warm, dry, normal turgor, no rashes or lesions noted Laboratory Results - last 24 hr 02/28/17 02/28/17 03/01/17 16:47 21:41 06:06 WBC RBC Hgb Hct MCV MCHC RDW Plt Count MPV Neutrophils % Lymphocytes % Monocytes % Eosinophils % Basophils % Sodium Potassium Chloride Carbon Dioxide Anion Gap BUN Creatinine Creat Clearance w eGFR POC Glucometer 150 146 136 Random Glucose Calcium Total Bilirubin Direct Bilirubin AST ALT Alkaline Phosphatase Total Protein Albumin 03/01/17 03/01/17 03/01/17 06:30 06:30 12:01 WBC 9.3 RBC 4.11 Hgb 11.7 Hct 34.2 MCV 83.2 MCHC 34.3 RDW 14.2 Plt Count 288 D MPV 9.0 Neutrophils % 68.8 Lymphocytes % 20.7 D Monocytes % 8.4 Eosinophils % 1.7 D Basophils % 0.4 Sodium 138 Potassium 3.4 L Chloride 101 Carbon Dioxide 29 Anion Gap 8 BUN 4 L D Creatinine 0.4 L Creat Clearance w eGFR > 60 POC Glucometer 121 Random Glucose 133 H Calcium 8.5 Total Bilirubin 1.5 H Direct Bilirubin 0.9 H D AST 54 H D ALT 80 H D Alkaline Phosphatase 556 H Total Protein 5.9 L Albumin 2.6 L Active Medications Generic Name Dose Route Start Last Admin Trade Name Freq PRN Reason Stop Dose Admin Acetaminophen 650 mg 02/25/17 12:05 02/27/17 21:48 Tylenol - PO 650 mg Q6H PRN Administration FEVER OR PAIN Amlodipine Besylate 5 mg 02/26/17 10:00 03/01/17 09:26 Norvasc - PO 5 mg DAILY MELISSA Administration Docusate Sodium 100 mg 02/28/17 14:00 03/01/17 14:10 Colace - PO 100 mg TID MELISSA Administration Heparin Sodium (Porcine) 5,000 unit 02/25/17 14:00 03/01/17 14:10 Heparin - SQ 5,000 unit TID MELISSA Administration Piperacillin Sod/Tazobactam 50 mls @ 100 mls/hr 02/27/17 10:56 03/01/17 09:26 Sod 3.375 gm/ Dextrose IVPB 100 mls/hr Q8H-IV MELISSA Administration Protocol Insulin Aspart 1 vial 02/25/17 16:30 03/01/17 12:03 Novolog Vial Sliding Scale - SQ Not Given ACHS MELISSA Protocol Ondansetron HCl 4 mg 02/25/17 11:21 Zofran Injection IVPB Q6H PRN NAUSEA Valsartan 80 mg 02/27/17 10:00 03/01/17 09:25 Diovan - PO 80 mg DAILY MELISSA Administration ASSESSMENT/PLAN: 61 yr old woman with NIDDM II and HTN who presented with 1 day of nausea, 4 episodes of nonbloody nonbilous vomiting and abdominal pain, now s/p urgent cholecystectomy. #Persistent Alk Phos -s/p surgery, all liver enzymes normalizing except alk phos (556) -will send for liver U/S and f/u labs in am #Severe sepsis 2/2 cholecystitis: resolved - zosyn IVPB 3.375 q8hr to cover bowel bacteria - zofran 4mg q6hr prn - MRCP revealed acute cholecystitis and dilated gall bladder (9cm) with surrounding edema - U/S showed gall stones in gall bladder 4cm - lactic acid stable at 1.6 - lft trending down except AlkP. ? ascending cholangitis DDx. will follow labs -AST 71, ALT 101, AlkP 535 -Tbili 1.7, Dbili 1.2, - s/p cholecystectomy -ID consult appreciated. recs f/u labs in am #DM hold metformin and glyxma 10mg NISS, BGM ACHS #HTN norvasc 5mg po DVT: heparin bid #FEN -f/u am labs -soft diet #Dispo -monitor in med/surg Visit type - Emergency Visit Emergency Visit: No - New Patient This patient is new to me today: No - Critical Care Critical Care patient: No
--- NOTE | 2017-03-01 16:20 | PN ---
GI Progress Note Subjective: No abdominal pain No fevers reported - Objective Vital Signs: Vital Signs Temperature 98.1 F 03/01/17 15:08 Pulse Rate 86 03/01/17 15:08 Respiratory Rate 0 L 03/01/17 08:31 Blood Pressure 134/83 03/01/17 15:08 O2 Sat by Pulse Oximetry (%) 94 L 03/01/17 09:00 Constitutional: Calm Eyes: No: Sclera Icterus Cardiovascular: Yes: Regular Rate and Rhythm Respiratory: Yes: CTA Bilaterally Gastrointestinal Inspection: No: Distention ...Auscultate: Yes: Normoactive Bowel Sounds ...Palpate: No: Tenderness ...Percussion: No: Tympanitic Edema: No Neurological: Yes: Alert, Oriented Labs: CBC, BMP 03/01/17 06:30 03/01/17 06:30 INR, PTT INR 1.22 (0.82-1.09) H 02/25/17 07:50 Laboratory Tests 02/28/17 03/01/17 06:00 06:30 Total Bilirubin 1.7 H 1.5 H Direct Bilirubin 1.2 H D 0.9 H D AST 71 H 54 H D ALT 101 H 80 H D Alkaline Phosphatase 535 H 556 H Problem List - Problems (1) Acute calculous cholecystitis Assessment/Plan: Alkaline phosphatase elevation persists, kenna a bit today however patient however remains asymptomatic. ? if this is reactive sequelae of acute cholecystitis or alternate biliary pathology. I am ordering a CT scan of the abdomen to reevaluate for perihepatic fluid collections and biliary tract Added ursodiol to med regimen as well Monitor LFts Dr. Dai will be covering the weekend Code(s): K80.00 - CALCULUS OF GALLBLADDER W ACUTE CHOLECYST W/O OBSTRUCTION
--- NOTE | 2017-03-01 20:21 | PN ---
Teaching Attending Note Name of Resident: Edgar Lobo ATTENDING PHYSICIAN STATEMENT I saw and evaluated the patient. I reviewed the resident's note and discussed the case with the resident. I agree with the resident's findings and plan as documented. SUBJECTIVE: Comfortable with no acute distress. OBJECTIVE: Vital Signs Temperature 99.1 F 03/01/17 16:30 Pulse Rate 81 03/01/17 16:30 Respiratory Rate 20 03/01/17 16:30 Blood Pressure 126/77 03/01/17 16:30 O2 Sat by Pulse Oximetry (%) 94 L 03/01/17 09:00 Pe: per resident's note CBCD WBC 9.3 K/mm3 (4.0-10.0) 03/01/17 06:30 RBC 4.11 M/mm3 (3.60-5.2) 03/01/17 06:30 Hgb 11.7 GM/dL (10.7-15.3) 03/01/17 06:30 Hct 34.2 % (32.4-45.2) 03/01/17 06:30 MCV 83.2 fl (80-96) 03/01/17 06:30 MCHC 34.3 g/dl (32.0-36.0) 03/01/17 06:30 RDW 14.2 % (11.6-15.6) 03/01/17 06:30 Plt Count 288 K/MM3 (134-434) D 03/01/17 06:30 MPV 9.0 fl (7.5-11.1) 03/01/17 06:30 CMP Sodium 138 mmol/L (136-145) 03/01/17 06:30 Potassium 3.4 mmol/L (3.5-5.1) L 03/01/17 06:30 Chloride 101 mmol/L (98-107) 03/01/17 06:30 Carbon Dioxide 29 mmol/L (21-32) 03/01/17 06:30 Anion Gap 8 (8-16) 03/01/17 06:30 BUN 4 mg/dL (7-18) L D 03/01/17 06:30 Creatinine 0.4 mg/dL (0.55-1.02) L 03/01/17 06:30 Creat Clearance w eGFR > 60 (>60) 03/01/17 06:30 Random Glucose 133 mg/dL (74-106) H 03/01/17 06:30 Calcium 8.5 mg/dL (8.5-10.1) 03/01/17 06:30 Total Bilirubin 1.5 mg/dL (0.2-1.0) H 03/01/17 06:30 AST 54 U/L (15-37) H D 03/01/17 06:30 ALT 80 U/L (12-78) H D 03/01/17 06:30 Alkaline Phosphatase 556 U/L (45-117) H 03/01/17 06:30 Total Protein 5.9 g/dl (6.4-8.2) L 03/01/17 06:30 Albumin 2.6 g/dl (3.4-5.0) L 03/01/17 06:30 CARDIAC ENZYMES Creatine Kinase 77 IU/L (26-192) 02/23/17 14:10 Troponin I < 0.02 ng/ml (0.00-0.05) 02/23/17 14:10 Current Medications Generic Name Dose Route Start Last Admin Trade Name Freq PRN Reason Stop Dose Admin Acetaminophen 650 mg 02/25/17 12:05 02/27/17 21:48 Tylenol - PO 650 mg Q6H PRN Administration FEVER OR PAIN Amlodipine Besylate 5 mg 02/26/17 10:00 03/01/17 09:26 Norvasc - PO 5 mg DAILY MELISSA Administration Docusate Sodium 100 mg 02/28/17 14:00 03/01/17 14:10 Colace - PO 100 mg TID MELISSA Administration Heparin Sodium (Porcine) 5,000 unit 02/25/17 14:00 03/01/17 14:10 Heparin - SQ 5,000 unit TID MELISSA Administration Piperacillin Sod/Tazobactam 50 mls @ 100 mls/hr 02/27/17 10:56 03/01/17 18:04 Sod 3.375 gm/ Dextrose IVPB 100 mls/hr Q8H-IV MELISSA Administration Protocol Insulin Aspart 1 vial 02/25/17 16:30 03/01/17 18:03 Novolog Vial Sliding Scale - SQ Not Given ACHS [facility] Protocol Ondansetron HCl 4 mg 02/25/17 11:21 Zofran Injection IVPB Q6H PRN NAUSEA Ursodiol 300 mg 03/01/17 22:00 Actigal - PO BID [facility] Valsartan 80 mg 02/27/17 10:00 03/01/17 09:25 Diovan - PO 80 mg DAILY [facility] Administration Home Medications Medication Instructions Recorded Metformin HCl [Glucophage -] 500 mg PO DAILY #0 tablet 07/08/13 Amlodipine Besylate [Norvasc -] 5 mg PO DAILY 02/23/17 Empagliflozin/Linagliptin 1 each PO DAILY 02/23/17 [Glyxambi 10 mg-5 mg Tablet] Telmisartan 80 mg PO DAILY 02/23/17 Docusate Sodium [Colace -] 100 mg PO TID #90 capsule 02/25/17 Oxycodone HCl/Acetaminophen 1 - 2 tab PO Q6H #28 tab MDD 4 02/25/17 [Percocet 5-325 mg Tablet] ASSESSMENT AND PLAN: 61 y/o lady with h/o HTN , DM , who presented with Abd pain. She was found to have severe sepsis , and gall stones. # POD #3 s/p cholecystectomy due to Acute Cholecystitis ,ALT, AST, bili improving but still ALk phos is not improved will monitor Alkaline phosphatase elevation persists,but patient is asymptomatic. Ordered CT scan to r/o for perihepatic fluid collections and biliary tract and Added ursodiol to med regimen as per GI ,Monitor LFts # E coli bacteremia: On Iv Zosyn continue # DM : hold oral meds, SSI with coverage # HTN: cont norvasc . on diovan in substitution of telmesartan DVT Px: Heparin
[2017-03-01] MEDS: URSODIOL 300 MG CAPSULE PO SCH (21:45)
[2017-03-02] MEDS: PIPERACILLIN/TAZOB 3.375 GM 3.375 GM in DEXTROSE 5%-WATER - 50 ML IVPB SCH ×2 (03:01→11:14)
[2017-03-02] MEDS: DOCUSATE SODIUM 100 MG CAPSULE (FP) PO SCH ×3 (06:37→21:58)
[2017-03-02] MEDS: HEPARIN NA (PORCINE) 5,000 UNITS/ML 1ML VIAL SQ SCH ×3 (06:37→21:58)
[2017-03-02] MEDS: INSULIN SLIDING SCALE (NOVOLOG) 1 VIAL SQ SCH ×4 (06:39→21:58)
[2017-03-02 07:41] LABS: MCH 28.6 pg (25.7-33.7); MCHC 34.1 g/dl (32.0-36.0); MEAN CELL VOLUME 83.7 fl (80-96); MEAN PLT VOLUME 8.3 fl (7.5-11.1); PLATELET COUNT 331 K/MM3 (134-434); RDW 14.7 % (11.6-15.6); WHITE BLOOD COUNT 8.8 K/mm3 (4.0-10.0)
[2017-03-02 07:57] LABS: ALBUMIN 2.8 g/dl (3.4-5.0); ANION GAP 10 (8-16); CO2 28 mmol/L (21-32); GLUCOSE,RANDOM 147 mg/dL (74-106); SGOT/AST 42 U/L (15-37); SGPT/ALT 69 U/L (12-78)
[2017-03-02 07:59] LABS: ALK PHOS 548 U/L (45-117); BILIRUBIN,TOTAL 1.3 mg/dL (0.2-1.0); CREATININE 0.5 mg/dL (0.55-1.02); TOT PROT 6.5 g/dl (6.4-8.2)
[2017-03-02 08:07] LABS: ALBUMIN 2.9 g/dl (3.4-5.0); BILIRUBIN,DIRECT 0.8 mg/dL (0.0-0.2); BILIRUBIN,TOTAL 1.6 mg/dL (0.2-1.0); TOT PROT 6.4 g/dl (6.4-8.2)
--- NOTE | 2017-03-02 08:07 | PN ---
Progress Note (short form) - Note Progress Note: Patient seen yesterday No pain Tolerating diet Wants to go home Vital Signs Period Temp Pulse Resp BP Sys/Blackburn Pulse Ox Last 24 Hr 98.1 F-99.1 F 81-86 0-20 126-137/77-100 94-94 Abd soft, NT, ND CBC,CMP WBC 8.8 K/mm3 (4.0-10.0) 03/02/17 06:00 RBC 4.33 M/mm3 (3.60-5.2) 03/02/17 06:00 Hgb 12.4 GM/dL (10.7-15.3) 03/02/17 06:00 Hct 36.2 % (32.4-45.2) 03/02/17 06:00 MCV 83.7 fl (80-96) 03/02/17 06:00 MCH 28.6 pg (25.7-33.7) 03/02/17 06:00 MCHC 34.1 g/dl (32.0-36.0) 03/02/17 06:00 RDW 14.7 % (11.6-15.6) 03/02/17 06:00 Plt Count 331 K/MM3 (134-434) 03/02/17 06:00 MPV 8.3 fl (7.5-11.1) 03/02/17 06:00 Neutrophils % Y 03/02/17 06:00 Lymphocytes % Y 03/02/17 06:00 Monocytes % 8.4 % (3.8-10.2) 03/01/17 06:30 Eosinophils % 1.7 % (0-4.5) D 03/01/17 06:30 Basophils % 0.4 % (0-2.0) 03/01/17 06:30 Sodium 138 mmol/L (136-145) 03/01/17 06:30 Potassium 3.4 mmol/L (3.5-5.1) L 03/01/17 06:30 Chloride 101 mmol/L (98-107) 03/01/17 06:30 Carbon Dioxide 29 mmol/L (21-32) 03/01/17 06:30 Anion Gap 8 (8-16) 03/01/17 06:30 BUN 4 mg/dL (7-18) L D 03/01/17 06:30 Creatinine 0.4 mg/dL (0.55-1.02) L 03/01/17 06:30 Creat Clearance w eGFR > 60 (>60) 03/01/17 06:30 POC Glucometer 153 UNITS (()) 03/02/17 06:36 Random Glucose 133 mg/dL (74-106) H 03/01/17 06:30 Lactic Acid 1.7 mmol/L (0.4-2.0) 02/25/17 18:00 Calcium 8.5 mg/dL (8.5-10.1) 03/01/17 06:30 Total Bilirubin 1.5 mg/dL (0.2-1.0) H 03/01/17 06:30 Direct Bilirubin 0.9 mg/dL (0.0-0.2) H D 03/01/17 06:30 AST 54 U/L (15-37) H D 03/01/17 06:30 ALT 80 U/L (12-78) H D 03/01/17 06:30 Alkaline Phosphatase 556 U/L (45-117) H 03/01/17 06:30 Creatine Kinase 77 IU/L (26-192) 02/23/17 14:10 Troponin I < 0.02 ng/ml (0.00-0.05) 02/23/17 14:10 Total Protein 5.9 g/dl (6.4-8.2) L 03/01/17 06:30 Albumin 2.6 g/dl (3.4-5.0) L 03/01/17 06:30 Total Amylase 21 U/L (25-115) L 02/24/17 15:40 Lipase 51 U/L (73-393) L 02/24/17 15:40 Free T4 Cancelled 02/27/17 06:10 CT A/P ordered by GI: fluid in gallbladder fossa which is within normal limits post cholecystectomy. No dilation of the CBD. Has no clinical signs of infection/abscess or CBD stone- no pain, fevers. Bilirubin continues to improve If bilirubin continues to trend to normal, would discharge home Problem List - Problems (1) Acute cholecystitis due to biliary calculus Code(s): K80.00 - CALCULUS OF GALLBLADDER W ACUTE CHOLECYST W/O OBSTRUCTION (2) Elevated liver enzymes Code(s): R74.8 - ABNORMAL LEVELS OF OTHER SERUM ENZYMES
[2017-03-02] MEDS: VALSARTAN 80 MG TABLET (UD) PO SCH (09:51)
[2017-03-02] MEDS: URSODIOL 300 MG CAPSULE PO SCH ×2 (09:51→21:58)
[2017-03-02] MEDS: amLODIPine BESYLATE 5 MG TABLET (FP) PO SCH (09:51)
--- NOTE | 2017-03-02 11:07 | PN ---
Progress Note, Physician History of Present Illness: stable no new issues no complaints - Current Medication List Current Medications: Active Medications Acetaminophen (Tylenol -) 650 mg PO Q6H PRN PRN Reason: FEVER OR PAIN Last Admin: 02/27/17 21:48 Dose: 650 mg Amlodipine Besylate (Norvasc -) 5 mg PO DAILY [facility] Last Admin: 03/02/17 09:51 Dose: 5 mg Docusate Sodium (Colace -) 100 mg PO TID [facility] Last Admin: 03/02/17 06:37 Dose: 100 mg Heparin Sodium (Porcine) (Heparin -) 5,000 unit SQ TID [facility] Last Admin: 03/02/17 06:37 Dose: 5,000 unit Insulin Aspart (Novolog Vial Sliding Scale -) 1 vial SQ ACHS [facility] PRN Reason: Protocol Last Admin: 03/02/17 06:39 Dose: Not Given Ondansetron HCl (Zofran Injection) 4 mg IVPB Q6H PRN PRN Reason: NAUSEA Ursodiol (Actigal -) 300 mg PO BID [facility] Last Admin: 03/02/17 09:51 Dose: 300 mg Valsartan (Diovan -) 80 mg PO DAILY [facility] Last Admin: 03/02/17 09:51 Dose: 80 mg - Objective Vital Signs: Vital Signs Temperature 99.5 F 03/02/17 09:16 Pulse Rate 82 03/02/17 09:16 Respiratory Rate 16 03/02/17 09:16 Blood Pressure 128/81 03/02/17 09:16 O2 Sat by Pulse Oximetry (%) 94 L 03/01/17 21:00 Constitutional: Yes: No Distress, Calm Cardiovascular: Yes: Regular Rate and Rhythm Respiratory: Yes: Regular, CTA Bilaterally Gastrointestinal: Yes: Normal Bowel Sounds, Soft Musculoskeletal: Yes: WNL Extremities: Yes: WNL Wound/Incision: Yes: Clean/Dry Neurological: Yes: Alert, Oriented Labs: CBC, BMP 03/02/17 06:00 03/02/17 06:00 INR, PTT INR 1.22 (0.82-1.09) H 02/25/17 07:50 Assessment/Plan sepsis cholecystitis DM HTN gm negative bacteremia plan stopped all abx alk phos still increasing ct scan seen and result noted collection noted in the gall bladder fossa worried about the collection in gall bladder fossa if patient spikes fever or if the wbc increases then might have to restart the abx
--- NOTE | 2017-03-02 11:44 | PN ---
Physical Exam: SUBJECTIVE: Patient seen and examined Patient feel well, no acute abdominal pain, no shortness of breath. OBJECTIVE: Vital Signs Temperature 99.5 F 03/02/17 09:16 Pulse Rate 82 03/02/17 09:16 Respiratory Rate 16 03/02/17 09:16 Blood Pressure 128/81 03/02/17 09:16 O2 Sat by Pulse Oximetry (%) 94 L 03/01/17 21:00 GENERAL: The patient is awake, alert, and fully oriented, in no acute distress. HEAD: Normal with no signs of trauma. EYES: PERRL, extraocular movements intact, sclera anicteric, conjunctiva clear. ENT: Ears normal, oropharynx clear without exudates, moist mucous membranes. NECK: Trachea midline, full range of motion, supple. LUNGS: Breath sounds equal, clear to auscultation bilaterally, no wheezes, no crackles, no accessory muscle use. HEART: Regular rate and rhythm, S1, S2 without murmur, rub or gallop. ABDOMEN: Soft, nontender, nondistended, normoactive bowel sounds, no guarding, no rebound, no masses appreciated. EXTREMITIES: 2+ pulses, warm, well-perfused, no edema. NEUROLOGICAL: Cranial nerves II through XII grossly intact. Normal speech, gait not observed. PSYCH: Normal mood, normal affect. SKIN: Warm, dry, normal turgor, no rashes or lesions noted Laboratory Results - last 24 hr 03/01/17 03/01/17 03/01/17 12:01 17:04 21:42 WBC RBC Hgb Hct MCV MCH MCHC RDW Plt Count MPV Neutrophils % Lymphocytes % Sodium Potassium Chloride Carbon Dioxide Anion Gap BUN Creatinine Creat Clearance w eGFR POC Glucometer 121 153 161 Random Glucose Calcium Total Bilirubin Direct Bilirubin AST ALT Alkaline Phosphatase Total Protein Albumin 03/02/17 03/02/17 03/02/17 06:00 06:00 06:00 WBC 8.8 RBC 4.33 Hgb 12.4 Hct 36.2 MCV 83.7 MCH 28.6 MCHC 34.1 RDW 14.7 Plt Count 331 MPV 8.3 Neutrophils % Y Lymphocytes % Y Sodium 139 Potassium 3.5 Chloride 101 Carbon Dioxide 28 Anion Gap 10 BUN 6 L D Creatinine 0.5 L D Creat Clearance w eGFR > 60 POC Glucometer Random Glucose 147 H Calcium 9.0 Total Bilirubin 1.3 H 1.6 H D Direct Bilirubin 0.8 H AST 42 H D 42 H ALT 69 69 Alkaline Phosphatase 548 H 551 H Total Protein 6.5 6.4 Albumin 2.8 L 2.9 L 03/02/17 06:36 WBC RBC Hgb Hct MCV MCH MCHC RDW Plt Count MPV Neutrophils % Lymphocytes % Sodium Potassium Chloride Carbon Dioxide Anion Gap BUN Creatinine Creat Clearance w eGFR POC Glucometer 153 Random Glucose Calcium Total Bilirubin Direct Bilirubin AST ALT Alkaline Phosphatase Total Protein Albumin Active Medications Generic Name Dose Route Start Last Admin Trade Name Freq PRN Reason Stop Dose Admin Acetaminophen 650 mg 02/25/17 12:05 02/27/17 21:48 Tylenol - PO 650 mg Q6H PRN Administration FEVER OR PAIN Amlodipine Besylate 5 mg 02/26/17 10:00 03/02/17 09:51 Norvasc - PO 5 mg DAILY MELISSA Administration Docusate Sodium 100 mg 02/28/17 14:00 03/02/17 06:37 Colace - PO 100 mg TID MELISSA Administration Heparin Sodium (Porcine) 5,000 unit 02/25/17 14:00 03/02/17 06:37 Heparin - SQ 5,000 unit TID MELISSA Administration Insulin Aspart 1 vial 02/25/17 16:30 03/02/17 06:39 Novolog Vial Sliding Scale - SQ Not Given ACHS [facility] Protocol Ondansetron HCl 4 mg 02/25/17 11:21 Zofran Injection IVPB Q6H PRN NAUSEA Ursodiol 300 mg 03/01/17 22:00 03/02/17 09:51 Actigal - PO 300 mg BID MELISSA Administration Valsartan 80 mg 02/27/17 10:00 03/02/17 09:51 Diovan - PO 80 mg DAILY MELISSA Administration ASSESSMENT/PLAN: 61 y/o lady with h/o HTN , DM , who presented with Abd pain. She was found to have severe sepsis , and gall stones. # POD #5 s/p cholecystectomy due to Acute Cholecystitis ,ALT, AST, bili improving but still ALk phos is not improved will monitor # Alkaline phosphatase elevation continues , will repeat the levels again for am ,but patient is asymptomatic. Ordered CT scan to r/o for perihepatic fluid collections official report is pending and biliary tract and Added ursodiol to med regimen as per GI ,Monitor LFts # E coli bacteremia: On Iv Zosyn continue # DM : hold oral meds, SSI with coverage # HTN: cont norvasc . on diovan in substitution of telmesartan DVT Px: Heparin Visit type - Emergency Visit Emergency Visit: Yes ED Registration Date: 02/23/17 Care time: The patient presented to the Emergency Department on the above date and was hospitalized for further evaluation of their emergent condition. - New Patient This patient is new to me today: No - Critical Care Critical Care patient: No
[2017-03-02] MEDS ORDERED: INSULIN (NOVOLOG) ASPART 100 UNITS/ML 10ML VIAL ONE ×3 (13:53→21:55)
[2017-03-02 14:06] LABS: PLATELET ESTIMATE ADEQUATE (NORMAL)
--- NOTE | 2017-03-02 14:27 | PN ---
GI Progress Note Subjective: GI NOte: Pain free and tolerating diet. CT reveals a postop collection in the GB fossa but no evidence of a CBD stone. - Objective Vital Signs: Vital Signs Temperature 99.5 F 03/02/17 09:16 Pulse Rate 82 03/02/17 09:16 Respiratory Rate 16 03/02/17 09:16 Blood Pressure 128/81 03/02/17 09:16 O2 Sat by Pulse Oximetry (%) 94 L 03/01/17 21:00 Constitutional: Calm ...Auscultate: Yes: Normoactive Bowel Sounds ...Palpate: Yes: Soft, Other (nontender) Labs: CBC, BMP 03/02/17 06:00 03/02/17 06:00 INR, PTT INR 1.22 (0.82-1.09) H 02/25/17 07:50 Laboratory Tests 02/23/17 02/24/17 02/26/17 14:10 15:40 06:10 Total Bilirubin Direct Bilirubin Alkaline Phosphatase 229 H D 360 H 536 H 02/27/17 03/01/17 03/02/17 06:10 06:30 06:00 Total Bilirubin 1.6 H D Direct Bilirubin 0.8 H Alkaline Phosphatase 507 H 556 H 551 H Assessment/Plan I believe that the elevated alkaline phosphatase is a cholestatic reaction to cholecystitis, the surgery and now a residual collection rather than an CBD stone. Her LFTs can be followed as an outpatient once ID feels that she can be switched to oral antibiotics.
[2017-03-02] MEDS ORDERED: INSULIN DETEMIR 100 UNITS/ML MDV SQ ONE (14:28)
[2017-03-02] MEDS: ACETAMINOPHEN 325 MG TABLET (FP) PO PRN (23:59)
[2017-03-03] MEDS: DOCUSATE SODIUM 100 MG CAPSULE (FP) PO SCH ×2 (06:12→14:07)
[2017-03-03] MEDS: HEPARIN NA (PORCINE) 5,000 UNITS/ML 1ML VIAL SQ SCH ×2 (06:12→14:07)
[2017-03-03] MEDS: INSULIN SLIDING SCALE (NOVOLOG) 1 VIAL SQ SCH ×2 (06:12→11:48)
--- NOTE | 2017-03-03 08:49 | PN ---
Physical Exam: SUBJECTIVE: Patient seen and examined at bedside. No acute events overnight. No complaints at this time. Pt denies headache, chest pain, sob, abd pain, nausea, vomiting, diarrhea. Pt is having normal bowel movements. OBJECTIVE: Vital Signs Period Temp Pulse Resp BP Sys/Blackburn Pulse Ox Last 24 Hr 98.4 F-100.5 F 76-89 16-20 127-155/76-99 96 GENERAL: The patient is awake, alert, and fully oriented, in no acute distress. HEAD: Normal with no signs of trauma. EYES: PERRL, extraocular movements intact, sclera anicteric, conjunctiva clear. No ptosis. ENT: Ears normal, nares patent, oropharynx clear without exudates, moist mucous membranes. NECK: Trachea midline, full range of motion, supple. LUNGS: Breath sounds equal, clear to auscultation bilaterally, no wheezes, no crackles, no accessory muscle use. HEART: Regular rate and rhythm, S1, S2 3/6 systolic murmur at the right costal border, rub or gallop. ABDOMEN: Soft, nontender, nondistended, normoactive bowel sounds, no guarding, no rebound, no hepatosplenomegaly, no masses. EXTREMITIES: 2+ pulses, warm, well-perfused, no edema. NEUROLOGICAL: Cranial nerves II through XII grossly intact. Normal speech, gait not observed. PSYCH: Normal mood, normal affect. SKIN: Warm, dry, normal turgor, no rashes or lesions noted Laboratory Results - last 24 hr 03/02/17 03/02/17 03/02/17 06:00 12:02 21:49 WBC 8.8 RBC 4.33 Hgb 12.4 Hct 36.2 MCV 83.7 MCH 28.6 MCHC 34.1 RDW 14.7 Plt Count 331 MPV 8.3 Neutrophils % 68.0 Lymphocytes % 22.0 Monocytes % 5.0 Eosinophils % 1.0 Basophils % 0.0 Band Neutrophils 2.0 Differential Comment Manual diff done Reactive Lymphocytes 1 Plasma Cells 1 Platelet Estimate Adequate POC Glucometer 223 215 03/03/17 05:59 WBC RBC Hgb Hct MCV MCH MCHC RDW Plt Count MPV Neutrophils % Lymphocytes % Monocytes % Eosinophils % Basophils % Band Neutrophils Differential Comment Reactive Lymphocytes Plasma Cells Platelet Estimate POC Glucometer 147 Active Medications Generic Name Dose Route Start Last Admin Trade Name Freq PRN Reason Stop Dose Admin Acetaminophen 650 mg 02/25/17 12:05 03/02/17 23:59 Tylenol - PO 650 mg Q6H PRN Administration FEVER OR PAIN Amlodipine Besylate 5 mg 02/26/17 10:00 03/02/17 09:51 Norvasc - PO 5 mg DAILY EMLISSA Administration Docusate Sodium 100 mg 02/28/17 14:00 03/03/17 06:12 Colace - PO 100 mg TID MELISSA Administration Heparin Sodium (Porcine) 5,000 unit 02/25/17 14:00 03/03/17 06:12 Heparin - SQ 5,000 unit TID MELISSA Administration Insulin Aspart 1 vial 02/25/17 16:30 03/03/17 06:12 Novolog Vial Sliding Scale - SQ Not Given ACHS [facility] Protocol Ondansetron HCl 4 mg 02/25/17 11:21 Zofran Injection IVPB Q6H PRN NAUSEA Ursodiol 300 mg 03/01/17 22:00 03/02/17 21:58 Actigal - PO 300 mg BID MELISSA Administration Valsartan 80 mg 02/27/17 10:00 03/02/17 09:51 Diovan - PO 80 mg DAILY MELISSA Administration ASSESSMENT/PLAN: 61 yr old woman with NIDDM II and HTN who presented with 1 day of nausea, 4 episodes of nonbloody nonbilous vomiting and abdominal pain, now s/p urgent cholecystectomy. #Persistent Alk Phos -s/p surgery, all liver enzymes normalizing except alk phos (556) -day 6 post op. Alk persistently elevated. Per Dr. Dai, alk phos likely residual from cholecystitis and should be worked up out pt #Severe sepsis 2/2 cholecystitis: resolved -s/p cholecystectomy -all Abx d/c'ed per Dr. Bryson - MRCP revealed acute cholecystitis and dilated gall bladder (9cm) with surrounding edema - U/S showed gall stones in gall bladder 4cm - lactic acid stable at 1.6 - lft trending down except AlkP. ? ascending cholangitis DDx. will follow labs #DM hold metformin and glyxma 10mg NISS, BGM ACHS #HTN norvasc 5mg po DVT: heparin bid #FEN -no IVF -fat controlled diet #Dispo -monitor in med/surg Visit type - Emergency Visit Emergency Visit: No - New Patient This patient is new to me today: No - Critical Care Critical Care patient: No - Discharge Referral Referred to [facility] No
[2017-03-03] MEDS: URSODIOL 300 MG CAPSULE PO SCH (09:30)
[2017-03-03] MEDS: VALSARTAN 80 MG TABLET (UD) PO SCH (09:30)
[2017-03-03] MEDS: amLODIPine BESYLATE 5 MG TABLET (FP) PO SCH (09:30)
--- NOTE | 2017-03-03 10:25 | PN ---
GI Progress Note Subjective: GI NOte: Remains free of fever and pain. No blood testing ordered. I will order a repeat set. - Objective Vital Signs: Vital Signs Temperature 98.5 F 03/03/17 06:59 Pulse Rate 76 03/03/17 06:59 Respiratory Rate 20 03/03/17 06:59 Blood Pressure 148/85 03/03/17 06:59 O2 Sat by Pulse Oximetry (%) 96 03/02/17 21:00 Constitutional: No Distress ...Auscultate: Yes: Normoactive Bowel Sounds ...Palpate: Yes: Soft, Other (nontender) Labs: CBC, BMP 03/02/17 06:00 03/02/17 06:00 INR, PTT INR 1.22 (0.82-1.09) H 02/25/17 07:50 Assessment/Plan Cholestatic reaction to cholecystitis, the surgery and now a residual collection.
[2017-03-03 11:12] LABS: BASOPHIL 0.4 % (0-2.0); EOSINOPHIL 2.1 % (0-4.5); MCH 28.5 pg (25.7-33.7); MCHC 33.7 g/dl (32.0-36.0); MEAN CELL VOLUME 84.7 fl (80-96); MEAN PLT VOLUME 8.1 fl (7.5-11.1); PLATELET COUNT 348 K/MM3 (134-434); RDW 14.6 % (11.6-15.6); WHITE BLOOD COUNT 8.8 K/mm3 (4.0-10.0)
[2017-03-03 11:37] LABS: ALBUMIN 3.1 g/dl (3.4-5.0); BILIRUBIN,DIRECT 0.6 mg/dL (0.0-0.2); TOT PROT 6.9 g/dl (6.4-8.2)
--- NOTE | 2017-03-03 13:01 | PN ---
Progress Note, Physician History of Present Illness: stable no complaints - Current Medication List Current Medications: Active Medications Acetaminophen (Tylenol -) 650 mg PO Q6H PRN PRN Reason: FEVER OR PAIN Last Admin: 03/02/17 23:59 Dose: 650 mg Amlodipine Besylate (Norvasc -) 5 mg PO DAILY [facility] Last Admin: 03/03/17 09:30 Dose: 5 mg Docusate Sodium (Colace -) 100 mg PO TID [facility] Last Admin: 03/03/17 06:12 Dose: 100 mg Heparin Sodium (Porcine) (Heparin -) 5,000 unit SQ TID [facility] Last Admin: 03/03/17 06:12 Dose: 5,000 unit Insulin Aspart (Novolog Vial Sliding Scale -) 1 vial SQ ACHS [facility] PRN Reason: Protocol Last Admin: 03/03/17 11:48 Dose: Not Given Ondansetron HCl (Zofran Injection) 4 mg IVPB Q6H PRN PRN Reason: NAUSEA Ursodiol (Actigal -) 300 mg PO BID [facility] Last Admin: 03/03/17 09:30 Dose: 300 mg Valsartan (Diovan -) 80 mg PO DAILY [facility] Last Admin: 03/03/17 09:30 Dose: 80 mg - Objective Vital Signs: Vital Signs Temperature 98.5 F 03/03/17 06:59 Pulse Rate 87 03/03/17 11:39 Respiratory Rate 20 03/03/17 06:59 Blood Pressure 148/85 03/03/17 06:59 O2 Sat by Pulse Oximetry (%) 97 03/03/17 11:39 Constitutional: Yes: No Distress, Calm Cardiovascular: Yes: Regular Rate and Rhythm Respiratory: Yes: Regular, CTA Bilaterally Gastrointestinal: Yes: Normal Bowel Sounds, Soft Musculoskeletal: Yes: WNL Extremities: Yes: WNL Neurological: Yes: Alert, Oriented Psychiatric: Yes: Alert Labs: CBC, BMP 03/03/17 10:53 03/02/17 06:00 INR, PTT INR 1.22 (0.82-1.09) H 02/25/17 07:50 Assessment/Plan sepsis cholecystitis DM HTN gm negative bacteremia plan stable off of abx alp coming down continue current mgmt
[2017-03-03] MEDS ORDERED: INSULIN SLIDING SCALE (NOVOLOG) 1 VIAL SQ SCH (13:56)
[2017-03-03 17:02] VITALS: BP 129/79; PULSE 78; TEMP 98.6
--- NOTE | 2017-03-03 18:35 | DS ---
Physical Exam: SUBJECTIVE: Patient seen and examined at bedside. No acute events overnight. No complaints at this time. Pt denies nausea, vomiting, diarrhea, headache, chest pain, shortness of breath, abdominal pain, dysuria. OBJECTIVE: Vital Signs Period Temp Pulse Resp BP Sys/Blackburn Pulse Ox Last 24 Hr 98.4 F-98.9 F 76-87 16-20 129-151/75-94 96-97 PHYSICAL EXAM GENERAL: The patient is awake, alert, and fully oriented, in no acute distress. HEAD: Normal with no signs of trauma. EYES: PERRL, extraocular movements intact, sclera anicteric, conjunctiva clear. ENT: Ears normal, nares patent, oropharynx clear without exudates, moist mucous membranes. NECK: Trachea midline, full range of motion, supple. LUNGS: Breath sounds equal, clear to auscultation bilaterally, no wheezes, no crackles, no accessory muscle use. HEART: Regular rate and rhythm, S1, S2 without murmur, rub or gallop. ABDOMEN: Soft, nontender, nondistended, normoactive bowel sounds, no guarding, no rebound, no hepatosplenomegaly, no masses. EXTREMITIES: 2+ pulses, warm, well-perfused, no edema. NEUROLOGICAL: Cranial nerves II through XII grossly intact. Normal speech, gait not observed. PSYCH: Normal mood, normal affect. SKIN: Warm, dry, normal turgor, no rashes or lesions noted. LABS Laboratory Results - last 24 hr 03/02/17 03/03/17 03/03/17 21:49 05:59 10:53 WBC RBC Hgb Hct MCV MCH MCHC RDW Plt Count MPV Neutrophils % Lymphocytes % Monocytes % Eosinophils % Basophils % POC Glucometer 215 147 Total Bilirubin 1.0 D Direct Bilirubin 0.6 H D AST 38 H ALT 58 Alkaline Phosphatase 509 H Total Protein 6.9 Albumin 3.1 L 03/03/17 10:53 WBC 8.8 RBC 4.34 Hgb 12.4 Hct 36.7 MCV 84.7 MCH 28.5 MCHC 33.7 RDW 14.6 Plt Count 348 MPV 8.1 Neutrophils % 72.0 Lymphocytes % 19.0 Monocytes % 6.5 Eosinophils % 2.1 D Basophils % 0.4 D POC Glucometer Total Bilirubin Direct Bilirubin AST ALT Alkaline Phosphatase Total Protein Albumin HOSPITAL COURSE: Date of Admission:02/23/17 Date of Discharge: 03/03/17 61 yr old woman with NIDDM II and HTN who presented with 1 day of nausea, 4 episodes of nonbloody nonbilous vomiting and abdominal pain, now s/p urgent cholecystectomy. The patient was admitted to Med/Surg with severe sepsis secondary to cholecystitis. The patient had U/S and MRCP which demonstrated a gall stone of 4.5cm obstructing the bladder neck with distention of the gallbladder to 9cm and without dilation of the CBD. The patient had a laparoscopic cholecystectomy which brought about resolution of her symptoms. Her liver enzymes were elevated prior to the surgery, and they resolved after the procedure with the notable exception of her alk phos, which remained elevated in the 500s. Repeat imaging and labs failed to identify any other obvious cause for her persistently elevated Alk phos. It was determined that this was likely a residual change from her cholecystitis and should be worked up as an out pt. ID, surgery, and GI consulted on the case. The patient received therapy for her diabetes and for her hypertension while in the hospital. Minutes to complete discharge: 45 Discharge Summary Reason For Visit: EPIGASTRIC PAIN Current Active Problems Acute calculous cholecystitis (Acute) Acute cholecystitis due to biliary calculus (Acute) Biliary colic (Acute) Cholelithiasis (Acute) Elevated liver enzymes (Acute) Epigastric pain (Acute) S/P laparoscopic cholecystectomy (Acute) Condition: Stable - Instructions Diet, Activity, Other Instructions: You were admitted for the evaluation of cholecystitis for which you had Lap cholecystectomy. Please follow up with the GI Please follow up with primary care physician in a week and your GI doctor in a week. may take shower Activity as tolerated Low fat diet Referrals: Alfonzo Aparicio MD [Staff Physician] - Conor Miller [Primary Care Provider] - 1 Week Phil Hernandez DO [Staff Physician] - Disposition: HOME - Home Medications Comprehensive Discharge Medication List: Ambulatory Orders Metformin HCl [Glucophage -] 500 mg PO DAILY #0 tablet 07/08/13 Amlodipine Besylate [Norvasc -] 5 mg PO DAILY 02/23/17 Empagliflozin/Linagliptin [Glyxambi 10 mg-5 mg Tablet] 1 each PO DAILY 02/23/17 Telmisartan 80 mg PO DAILY 02/23/17 Docusate Sodium [Colace -] 100 mg PO TID #90 capsule 02/25/17 Oxycodone HCl/Acetaminophen [Percocet 5-325 mg Tablet] 1 - 2 tab PO Q6H #28 tab MDD 4 02/25/17 This patient is new to me today: No Emergency Visit: No Critical Care patient: No - Discharge Referral Referred to [facility] No
--- NOTE | 2017-03-03 20:55 | PN ---
Teaching Attending Note Name of Resident: Edgar Lobo ATTENDING PHYSICIAN STATEMENT I saw and evaluated the patient. I reviewed the resident's note and discussed the case with the resident. I agree with the resident's findings and plan as documented. SUBJECTIVE: Patient is feeling better, with no acute distress. no nausea or vomiting, no pain, no shortness of breath. OBJECTIVE: Vital Signs Temperature 98.6 F 03/03/17 17:01 Pulse Rate 78 03/03/17 17:01 Respiratory Rate 20 03/03/17 17:01 Blood Pressure 129/79 03/03/17 17:01 O2 Sat by Pulse Oximetry (%) 97 03/03/17 11:39 CBCD WBC 8.8 K/mm3 (4.0-10.0) 03/03/17 10:53 RBC 4.34 M/mm3 (3.60-5.2) 03/03/17 10:53 Hgb 12.4 GM/dL (10.7-15.3) 03/03/17 10:53 Hct 36.7 % (32.4-45.2) 03/03/17 10:53 MCV 84.7 fl (80-96) 03/03/17 10:53 MCHC 33.7 g/dl (32.0-36.0) 03/03/17 10:53 RDW 14.6 % (11.6-15.6) 03/03/17 10:53 Plt Count 348 K/MM3 (134-434) 03/03/17 10:53 MPV 8.1 fl (7.5-11.1) 03/03/17 10:53 CMP Sodium 139 mmol/L (136-145) 03/02/17 06:00 Potassium 3.5 mmol/L (3.5-5.1) 03/02/17 06:00 Chloride 101 mmol/L (98-107) 03/02/17 06:00 Carbon Dioxide 28 mmol/L (21-32) 03/02/17 06:00 Anion Gap 10 (8-16) 03/02/17 06:00 BUN 6 mg/dL (7-18) L D 03/02/17 06:00 Creatinine 0.5 mg/dL (0.55-1.02) L D 03/02/17 06:00 Creat Clearance w eGFR > 60 (>60) 03/02/17 06:00 Random Glucose 147 mg/dL (74-106) H 03/02/17 06:00 Calcium 9.0 mg/dL (8.5-10.1) 03/02/17 06:00 Total Bilirubin 1.0 mg/dL (0.2-1.0) D 03/03/17 10:53 AST 38 U/L (15-37) H 03/03/17 10:53 ALT 58 U/L (12-78) 03/03/17 10:53 Alkaline Phosphatase 509 U/L (45-117) H 03/03/17 10:53 Total Protein 6.9 g/dl (6.4-8.2) 03/03/17 10:53 Albumin 3.1 g/dl (3.4-5.0) L 03/03/17 10:53 CARDIAC ENZYMES Creatine Kinase 77 IU/L (26-192) 02/23/17 14:10 Troponin I < 0.02 ng/ml (0.00-0.05) 02/23/17 14:10 Home Medications Medication Instructions Recorded Metformin HCl [Glucophage -] 500 mg PO DAILY #0 tablet 07/08/13 Amlodipine Besylate [Norvasc -] 5 mg PO DAILY 02/23/17 Empagliflozin/Linagliptin 1 each PO DAILY 02/23/17 [Glyxambi 10 mg-5 mg Tablet] Telmisartan 80 mg PO DAILY 02/23/17 Docusate Sodium [Colace -] 100 mg PO TID #90 capsule 02/25/17 Oxycodone HCl/Acetaminophen 1 - 2 tab PO Q6H #28 tab MDD 4 02/25/17 [Percocet 5-325 mg Tablet] ASSESSMENT AND PLAN: 61 y/o lady with h/o HTN , DM , who presented with Abd pain. She was found to have severe sepsis , and gall stones. # POD #6 s/p cholecystectomy due to Acute Cholecystitis ,ALT, AST, bili trending down, discussed with . Patient can be discharged home but needs to follow with GI or with her own PMD at [facility].to repeat LFTs # Alkaline phosphatase trending down now # E coli bacteremia: OFF antibiotic , patient is stable therfore no further Abx is needed # DM : continue home meds # HTN: cont norvasc .and telmesartan Discharge time 45 minutes
== END 2017-03-03 18:59 | disposition home or self-care (01) | DRG 854 ==
LOC: JER 13:38 → JERBED 16:24 → J8W 18:58
PROVIDERS: ADMIT Internal Medicine; ATTEND Internal Medicine
PROC: 0FT44ZZ Resection of Gallbladder, Percutaneous Endoscopic Approach (ICD-10-PCS; principal; 2017-02-25 08:00)
DX: A41.9 Sepsis, unspecified organism (principal); K80.00 Calculus of gallbladder with acute cholecystitis without obstruction; I10 Essential (primary) hypertension; E11.9 Type 2 diabetes mellitus without complications; Z79.84 Long term (current) use of oral hypoglycemic drugs; Z98.84 Bariatric surgery status; R65.20 Severe sepsis without septic shock; R74.0 Nonspecific elevation of levels of transaminase and lactic acid dehydrogenase [LDH]
CPT/HCPCS: 36415; 36600; 71010-TC; 74160-TC; 74181-TC; 76705-TC; 80048; 80053; 80076; 81003; 82150; 82248; 82550; 82803; 83605; 83690; 84484; 85025; 85610; 86850; 86900; 86901; 87040; 87186; 88304-TC; 93005; 93010; 94760; 99284-25; J1644